=== PATIENT | female | born 1940 | race Caucasian/White ===

== ENCOUNTER 2024-06-27 20:21 | Inpatient (IN) | payer OTHER, SELFPAY ==
[2024-06-27] VITALS (8 sets, daily range): BP systolic 97–190; BP diastolic 67–103; BMI 29.8; BMI 28.3
--- NOTE | 2024-06-27 15:54 | ED.GENMED ---
History of Present Illness
General
Chief Complaint: Pneumonia Symptoms
Source: patient and family
Exam Limitations: none
Time Seen by Provider: 06/27/24 15:21
Nursing documentation reviewed up to this point in time: agreed with
History of Present Illness
History of Present Illness:
Patient is an 84-year-old female brought to the ER for evaluation by son. Patient reports she has had cough since Labor Day for the past several weeks. 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 Completed Zithromax Flonase Tamiflu
Augmentin and Tessalon. She was told urgent care that she has a left lower lobe pneumonia but still has symptoms of cough. She denies any fever or chills.
She does have a history of A-fib and is on aspirin only she refuses other anticoagulation.
She is a non-smoker.
Past History
Past History
ED Past Medical History: Arrthythmia (afib), Asthma, HTN, Hypercholesterolemia and Other (chronic LE edema, R heel osteomyelitis)
ED Past Surgical History: Orthopedic
Social History
Tobacco: Non-smoker
Alcohol: None
Drug: None
Personal:
Living: with family
Review of Systems
Review of Systems
Allergies reviewed?: Yes
All Other Systems: ROS reviewed and negative except as documented in HPI and ROS
Respiratory: Reports cough and other (sob w/ coughing episodes)
Cardiac: Reports no symptoms
ABD/GI: Reports no symptoms
Skin: Reports no symptoms
Neurological: Reports no symptoms
Psychiatric: Reports no symptoms
Phy Exam
General Physical Exam
General Presentation: no apparent distress
General age: appears stated age
General Skin: warm and dry
General Habitus: elderly
General Mental: alert
General Hydration: appears well hydrated
Cardiovascular Exam
Cardiovascular Exam: irregularly irregular
Pulmonary Exam
Pulmonary Exam: other (slight wheezing rhonchi)
Neurological Exam
Neurological Exam: alert and oriented x3
Musculoskeletal Exam
Musculoskeletal Exam: full ROM
Skin Exam
Skin Exam: normal color and warm/dry
Psychiatric Exam
Psychiatric Exam: normal mood/affect
Course
Orders/Labs/Results
Orders:
Orders
06/27/24 Breakfast
Cholesterol Lowering
Cholesterol Lowering: Sodium, 2 Gram
06/27/24 14:25
Electrocardiogram (*1) Urgent
Reason for Study: Shortness of Breath
EKG- Treatment ONCE
06/27/24 Dinner
Cholesterol Lowering
At Your Request: Full Participation
Cholesterol Lowering: Sodium, 2 Gram
06/27/24 16:01
Cardiac Monitoring- Treatment ONCE
CR Chest - 2 Views Urgent
Comment:
Reason For Exam: cough
06/27/24 16:02
IV Insert/Care/Rem.- Treatment PRN
06/27/24 16:17
CMP [Comprehensive Metabolic Panel] Urgent
COVID-19 Antigen Urgent
Source: Nasal Swab
Complete Blood Count/With Diff Urgent
Influenza A+B Rapid Molecular Urgent
MYA Source: Nasal Swab
Specimen Description:
06/27/24 16:56
CT Chest Pe Study Urgent
Comment:
Reason For Exam: persistent cough sob
06/27/24 17:52
Albuterol Nebs [Ventolin Nebules] 2.5 mg INH R NOW STA
06/27/24 18:49
Azithromycin 500 mg/250 ml [Zithromax Infusion] 500 mg in 250 ml IV NOW
CefTRIAXone [Rocephin] 1,000 mg IV NOW STA
06/27/24 18:56
Sterile Water [Sterile Water For Injection] 20 ml .ROUTE .STK-MED
06/27/24 19:44
Admit/Transfer Patient As Directed
Co-Sign Provider:
Level of Care: Inpatient admission
Assign to:: Telemetry
Physician / Group: [email or web address]
Diagnosis: PNA, suspect acute on chr HFpEF
Reason for Telemetry: Subacute Heart Failure
Date to Stop Telemetry: 06/29/24
Time to Stop Telemetry: 11:00
Reason for Hospitalization: PNA, suspect acute on chr HFpEF
Expected length of stay greater than two midnights?: Yes
ELOS- Estimated Length of Stay in days: 4
I certify the patient meets the requirements for IP care: Yes
06/27/24 19:47
Code Status As Directed
Resuscitation Status: Full Code
06/27/24 20:06
Pro-BNP [NT-proBNP] Routine
06/27/24 21:08
Doxycycline [Vibramycin] 100 mg PO Q12
Furosemide [Lasix] 40 mg IV NOW STA
Heparin 5,000 units SC Q12
06/27/24 21:08
HF DIETARY CONSULT Routine
HF EDUCATOR CONSULT Routine
Comment:
Activity As Directed
Activity Level: With Assistance
Intake/ Output As Directed
Frequency: Per unit guidelines
Patient Education As Directed
Type: CHF folder
Comment: give on admission. Document in Interdisciplinary Education record
Sleep Apnea Assessment by RN As Directed
Comment:
Physician Instructions:
Vital Signs As Directed
Frequency: Other
Additional Instructions:: Q12 or per unit guidelines if more frequent.
Weight As Directed
Frequency: Daily
Type of Scale: Standing Scale
Comment: Daily morning weight. If unable to stand, use balanced bed scale.
Weight As Directed
Frequency: Once
Type of Scale: Standing Scale
Comment: Upon Admission. If unable to stand, use balanced bed scale.
Pulse Ox/cont/shift [RESP] Routine
Quantity: 1
Special Instructions: Daily pulse oximetry at rest. If greater than 92% at rest also obtain pulse oximetry
while ambulating as tolerated.
DX Deep Vein Thrombosis Video Routine
06/27/24 22:00
Pravastatin Sodium [Pravachol] 40 mg PO HS
06/28/24 06:00
Echo 2D MMode Color/Doppler IN AM
Reason for Study: heart failure
06/28/24 06:45
Basic Metabolic Panel IN AM
Complete Blood Count/No Diff IN AM
Procalcitonin IN AM
PCT Algorithmm Indication: Respiratory
06/28/24 08:00
Aspirin Low Dose EC [Aspir Low (Enteric Coated)] 81 mg PO DAILY
Furosemide [Lasix] 40 mg IV DAILY
Losartan [Cozaar] 50 mg PO DAILY
Metoprolol Xl [Toprol Xl] 25 mg PO DAILY
Metoprolol Xl [Toprol Xl] 50 mg PO DAILY
06/28/24 20:00
CefTRIAXone [Rocephin] 1,000 mg IV Q24H
06/29/24 06:00
Basic Metabolic Panel IN AM
06/29/24 11:00
DC Protocol for Telemetry ONCE
06/30/24 06:00
Basic Metabolic Panel IN AM
Abnormal Lab Results
06/27/24
16:17
RBC 3.83 L 10^6/uL
(4.20-5.40)
Hgb 11.5 L g/dL
(12.0-16.0)
Hct 34.8 L %
(37.0-47.0)
MPV 11.0 H fL
(7.4-10.4)
Absolute Lymphs (auto) 0.9 L 10^3/uL
(1.2-3.4)
Absolute Monos (auto) 0.7 H 10^3/uL
(0.1-0.6)
Neutrophils % 75.3 H %
(42.2-75.2)
Lymphocytes % 11.4 L %
(20.5-51.1)
BUN 27 H mg/dl
(7-17)
Creatinine 1.1 H mg/dL
(0.6-1.0)
06/27/24 16:17
06/27/24 16:17
Vital Signs
Initial and Last Documented VS:
Initial Vital Signs
Temp Pulse Resp BP Pulse Ox
98.4 F 122 18 190/103 96
06/27/24 14:20 06/27/24 14:20 06/27/24 14:20 06/27/24 14:20 06/27/24 14:20
Last Documented Vital Signs
Temp Pulse Resp BP Pulse Ox
98.3 F 90 20 140/60 95
06/28/24 03:55 06/28/24 08:08 06/28/24 03:55 06/28/24 08:08 06/28/24 03:55
MDM/Problems Addressed
Differential Diagnosis Includes:
not limited to :pneumonia covid, influenza
MDM/Problems Addressed:
Patient is an 84-year-old female who presents to the ER with continued cough. Patient was treated for left lower lobe pneumonia by urgent care/PCP completed Zithromax and completed Augmentin still with cough. Patient denies any fevers short of
breath with cough only she presents awake alert no acute distress she does have a history of A-fib and is not anticoagulated because she does not believe that medication. She is on aspirin. She initially arrived tachycardic at 120 in triage
however here in the treatment area has been 80s to 90s.. Patient does have wheezing on exam/bilateral rhonchi however she is in no acute distress nontachypneic and nonhypoxic.. white count is normal. COVID and flu are negative. Chest x-ray done
shows moderate size airspace consolidation in the basilar left lower lobe possible recurrent left lower lobe pneumonia chronic left lower lobe scarring. With continued symptoms and abnormal chest x-ray will check CT to further evaluate findings.
Pt is well appearing if pneumonia stable for d/c home with a new /different antibx. d/ c with DR Patterson ct pending.
*Radiology
Radiology exam reviewed: radiology read reviewed
*Pulse Oximetry
Patient hypoxic: no
*EKG
Interpreted by ED Provider?: Yes
Heart Rate: 95
Rate: normal
Rhythm: a-fib
Ischemia: no ischemia
*Critical Care Note
Total Time (30-74mins, 75-104mins- exclusive of procedures): Not Applicable
ED Attending Note
-
Portions of this chart may have been created with voice recognition software.� Occasional wrong word or��sound alike� substitutions may have occurred due to the inherent limitations of voice recognition software.
Discharge Plan
Departure
Patient Disposition: Admit
Date of Disposition: 06/27/24
Time of Disposition: 18:50
Admit to: Med/Surg
Admit to doctor: hospitalist
Presentation/result/management discussed w/ accepting MD/DO: Hospitalist
Patient with high blood pressure during this ER visit?: Yes
Condition: Fair
Covid-19: Not Applicable
Discharge Problem:
Failure of outpatient treatment, Pneumonia
Interventions
Interventions:
*Risk Screen - Suicide Last Done: 06/27/24 22:57
*General Assessment Last Done: 06/27/24 14:20
*Neglect/Abuse Screening Last Done: 06/27/24 14:20
*ED COVID-19 Vaccine History Last Done: 06/27/24 23:04
*Nursing Disposition Last Done: 06/27/24 20:40
ED- Cardiac Assessment Last Done: 06/27/24 16:30
ED- Pulmonary Assessment Last Done: 06/27/24 16:30
Discharge Date and Time
Discharge Date/Time: 06/27/24 20:41
[2024-06-27 16:32] LABS: % Basophils 0.4 % (0-2); % Eosinophils 3.1 % (0-6); % Immature Granulocytes 0.5 % (0-0.5); % Lymphocytes 11.4 % (20.5-51.1); % Monocytes 9.3 % (1.7-9.3); % Neutrophils 75.3 % (42.2-75.2); Absolute Eosinophils 0.3 10^3/uL (0-0.7); Absolute Lymphocytes 0.9 10^3/uL (1.2-3.4); Absolute Monocytes 0.7 10^3/uL (0.1-0.6); Hematocrit 34.8 % (37.0-47.0); Hemoglobin 11.5 g/dL (12.0-16.0); Mean Corpuscular Volume 90.9 fL (81.0-99.0); Nucleated Red Blood Cells % 0 %; Platelet Count 186 10^3/uL (130-400); Red Blood Cell Count 3.83 10^6/uL (4.20-5.40); Red Cell Dist. Width 13.6 % (11.5-14.5)
[2024-06-27 16:50] LABS: ALT (SGPT) 13 U/L (0-35); AST (SGOT) 31 U/L (14-36); Albumin 3.8 g/dl (3.5-5.0); Alkaline Phosphatase 83 U/L (38-126); Blood Urea Nitrogen 27 mg/dl (7-17); Calcium 9.6 mg/dl (8.4-10.2); Carbon Dioxide 27 mmol/L (22-30); Chloride 106 mmol/L (98-107); Glucose 99 mg/dl (70-99); Potassium 4.2 mmol/L (3.5-5.1); Sodium 144 mmol/L (135-145); Total Bilirubin 0.5 mg/dl (0.2-1.3); Total Protein 6.8 g/dl (6.3-8.2); eGFR 48.94
[2024-06-27 16:56] LABS: COVID-19 Antigen Negative (Negative)
[2024-06-27] MEDS: VENTOLIN NEBULES 2.5 MG INH (18:18)
[2024-06-27] MEDS: ROCEPHIN 1000 MG IV (19:09)
[2024-06-27] MEDS: ZITHROMAX INFUSION 250 IV (19:10)
--- NOTE | 2024-06-27 19:29 | HPS.HSE ---
Addendum entered and electronically signed by Luis Dia MD 06/27/24 22:46:
Pul consult placed
Original Note:
Family Physician
-
Family Physician: Tavon Velazquez
Chief Complaint
-
Bothersome cough despite ABx
History of Present Illness
84F HX chr HFpEF, Prx AF on ASA, HX refuseal to AC, Chronic lower extremity edema, CKD3 seen at ER for evalaution of bothersome cough since . Evaulaurted at [facility] , completed Zithromax , Augmentin, Tamiflu and Tessalon.
- OP CXR at [facility] suggest left lower lobe pneumonia but still has symptoms of cough.
- denies any fever or chills.
Medical History
Past Medical History
Past Medical History: Reports Other
Additional Past Medical History:
Past medical history and archive reviewed:
A. fib but not anticoagulated because she chose not not to take anticoagulation
Osteoarthritis
Chronic lower extremity edema
Asthma
Hypertension
Dyslipidemia
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
Family history: Positive for hypertension coronary artery disease
Past Surgical History: Reports Other
Social History
Unable to obtain full social history at this time due to: Other
Family History
Family History: Other
Allergies / Home Medications
Allergies reflects when Allergies were last updated in [facility].
Home Medications with original date entered in [facility] [employer]
Allergy/Medication List:
Allergies
Allergy/AdvReac Type Severity Reaction Status Date / Time
No Known Allergies Allergy Verified 09/06/22 12:50
Home Medications
acetaminophen 500 mg tablet (Tylenol Extra Strength) 500 mg PO BID 03/31/21
aspirin 81 mg tablet,delayed release 81 mg PO DAILY Blood clot prevention/tx 03/31/21
atenolol 100 mg tablet (Tenormin) 100 mg PO DAILY Heart disease/condition 03/31/21
chlorthalidone 25 mg tablet 25 mg PO DAILY Fluid retention/Swelling 03/31/21
losartan 100 mg tablet 100 mg PO DAILY Heart disease/condition 03/31/21
pravastatin 40 mg tablet 40 mg PO HS High cholesterol 03/31/21
doxycycline hyclate 100 mg capsule 100 mg PO BID #20 caps 09/06/22
furosemide 20 mg tablet 20 mg PO MOWEFR 09/06/22
Review of Systems
-
Constitutional: Reports No Symptoms
EENT: Reports No Symptoms
Cardiac: Reports No Symptoms
Abdomen/GI: Reports No Symptoms
: Reports No Symptoms
Musculoskeletal: Reports No Symptoms
Skin: Reports No Symptoms
Neurological: Reports No Symptoms
Endocrine: Reports No Symptoms
Hematologic/Lymphatic: Reports No Symptoms
Psych: Reports No Symptoms
Physical Exam
Vital Signs
Vital Signs
Temp Pulse Resp BP Pulse Ox
98.4 F 91 16 163/67 94
06/27/24 14:20 06/27/24 19:07 06/27/24 19:07 06/27/24 19:07 06/27/24 19:07
Physical Exam
General: No Apparent Distress, Comfortable, Conversant and Other
HEENT: NormoCephalic, Moist mucous membranes and No Ptosis
Respiratory: Rhonchi (both lungs ); No Wheezes
Cardiac: Irregular Rhythm; No Murmur
Breast: Deferred by me
GI: Soft, Non Tender and Non Distended
Genito-urinary: Deferred by me
Musculoskeletal: Edema, Left Lower Extremity (chronic ) and Edema, Right Lower Extremity (chronic )
Psych: Calm and Intact Judgment/Insight
Laboratory Results
-
06/27/24 16:17
06/27/24 16:17
Laboratory Results
Total Bilirubin 0.5 mg/dl (0.2-1.3) 06/27/24 16:17
AST 31 U/L (14-36) 06/27/24 16:17
ALT 13 U/L (0-35) 06/27/24 16:17
Alkaline Phosphatase 83 U/L (38-126) 06/27/24 16:17
Data Reviewed
-
Diagnostic Radiology: Report Reviewed by me
CT Scan: Report Reviewed by me
Lab Data: Labs Reviewed by me
Old Records: Reviewed
Impression/Plan
-
Vital Signs
Temp Pulse Resp BP Pulse Ox
98.4 F 91 16 163/67 94
06/27/24 14:20 06/27/24 19:07 06/27/24 19:07 06/27/24 19:07 06/27/24 19:07
Laboratory Tests
10/10/23 06/27/24
15:29 16:17
Creatinine 1.3 H 1.1 H
eGFR 40.30 48.94
SARS-CoV-2 Antigen Negative
CXR
1. Moderate-sized airspace consolidation in the basilar left lower lobe. Diagnostic possibilities are (1) RECURRENT LEFT LOWER LOBE PNEUMONIA or (2) chronic left lower lobe scarring and subsegmental atelectasis.
2. Mild cardiomegaly with suggestion of elevated pulmonary venous pressures.
3. 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
CTC PE protocol
1. Moderate peribronchial and subpleural airspace consolidation in the basilar segments of the left lower lobe.
Moderate cylindrical bronchiectasis in the left lower lobe suggesting chronic infection. Diagnostic possibilities are (1) acute recurrent left lower lobe pneumonia or (2) chronic scarring and atelectasis.
2. Moderate diffuse bronchitis.
3. MILD ACUTE INTERSTITIAL and ALVEOLAR CARDIOGENIC PULMONARY EDEMA.
4. Moderate to severe cardiomegaly with severe biatrial enlargement.
5. Severely exaggerated cervical thoracic kyphosis.
6. Severe left renal atrophy.
EKG
ATRIAL FIBRILLATION
SEPTAL INFARCT (CITED ON OR BEFORE 16-SEP-2022)
ABNORMAL ECG
WHEN COMPARED WITH ECG OF 10-OCT-2023 15:18,
ST NO LONGER DEPRESSED IN INFERIOR LEADS
Confirmed by MD ALAN, KATHIA Perez ([id number]) on 06/27/2024 3:02:08 PM
Last hospitalist admission:
DATE OF ADMISSION: 09/16/2022 - DATE OF DISCHARGE: 09/21/2022
DISCHARGE DIAGNOSES:
1. Influenza A infection.
2. Acute on chronic CHF
3. Chronic lower extremity edema.
4. Atrial fibrillation.
5. Hypertension.
6. Hyperlipidemia.
7. CKD3.
8. Ambulatory dysfunction.
ASSESSMENT & PLAN
LLL basilar PNA
LLL moderate cylindrical bronchiectasis suggesting chronic infection.
- cont. IV CFTX and PO doxycycline in place of Zmax
- To consider Pul consult in AM
HX Chr HFpEF : No prior ECHO
CTC suggest MILD ACUTE INTERSTITIAL and ALVEOLAR CARDIOGENIC PULMONARY EDEMA. ? acute HF
- check proBNP
- ECHO
- IV Lasix 40 daily
- CBC Card consult
HX CKD 3
- f/u daily BMP daily
Chronic lower extremity edema
HX Chronic AF
-cont. Metoprolol
- not on anticoagulation because patient chose not to take it.
Essential Hypertension
- cont Losartan
Hyperlipidemia
-Statin
Chr Ambulatory dysfunction-uses a Walker at home
Osteoarthritis
DVT Px: SQH
Code: Full code
IP TLM
[2024-06-27 20:35] LABS: NT-proBNP 2180 pg/ml
[2024-06-27] MEDS: PRAVACHOL 40 MG PO (22:12)
[2024-06-27] MEDS: HEPARIN 5000 UNITS SC (22:12)
[2024-06-27] MEDS: LASIX 40 MG IV (22:12)
[2024-06-27] MEDS: VIBRAMYCIN 100 MG PO (22:12)
[2024-06-28] VITALS (8 sets, daily range): BP systolic 140–183; BP diastolic 60–91; BMI 27.9
[2024-06-28 07:20] LABS: Hemoglobin 10.5 g/dL (12.0-16.0); Mean Corp Hgb Conc. 32.8 g/dL (33.0-37.0); Mean Corpuscular Hgb 29.1 pg (27.0-31.0); Mean Corpuscular Volume 88.6 fL (81.0-99.0); Mean Platelet Volume 11.1 fL (7.4-10.4); Platelet Count 179 10^3/uL (130-400); Red Blood Cell Count 3.61 10^6/uL (4.20-5.40); Red Cell Dist. Width 13.8 % (11.5-14.5); White Blood Cell Count 7.3 10^3/uL (4.8-10.8)
[2024-06-28 07:40] LABS: Blood Urea Nitrogen 22 mg/dl (7-17); Calcium 9.5 mg/dl (8.4-10.2); Carbon Dioxide 30 mmol/L (22-30); Chloride 104 mmol/L (98-107); Estimated Creatinine Clearance 35 ml/min; Glucose 97 mg/dl (70-99); Potassium 3.8 mmol/L (3.5-5.1); Sodium 146 mmol/L (135-145); eGFR 40.05
[2024-06-28] MEDS: VIBRAMYCIN 100 MG PO ×2 (08:05→20:22)
[2024-06-28] MEDS: COZAAR 50 MG PO (08:05)
[2024-06-28] MEDS: ASPIR LOW (ENTERIC COATED) 81 MG PO (08:05)
[2024-06-28] MEDS: HEPARIN 5000 UNITS SC ×2 (08:07→20:22)
[2024-06-28] MEDS: TOPROL XL 25 MG PO (08:07)
[2024-06-28] MEDS: TOPROL XL 50 MG PO (08:07)
[2024-06-28] MEDS: LASIX 40 MG IV ×2 (08:08→15:50)
[2024-06-28 08:14] LABS: Procalcitonin < 0.05 ng/ml (0.0-0.25)
--- NOTE | 2024-06-28 09:29 | CON.CAR ---
Addendum entered and electronically signed by Essie Hammond MD 06/28/24 16:46:
I saw and examined the patient.
The MOLDER MEAT's note was reviewed and I agree with the note.
Comment: 84 y/o female (patient of Dr. Juarez) who has a history of permanent AFIB (not on OAC as she has declined), hypertension, dyslipidemia, mild to moderate MR, HFpEF, chronic LE edema, hx pneumonitis, uterine carcinoma, bronchiectasis who has
been struggling with pulm infections, now with PNA and acute on chronic hfpEF. She is admittedly noncompliant with diet at home. On exam she is alert and oriented x 3. Respiratory effort is normal but there are inspiratory squeaks, expiratory
crackles and wheezing. These are diffuse but worse in the lower lobes bilaterally. Irregularly irregular rate and rhythm. CTA b/l no w/r/r. ECG with afib and septal infarct patter acute CHF, preserved ejection fraction, agree with IV twice daily
Lasix with intensive monitoring of electrolytes. Continue GDMT. Treatment of pneumonia as per medicine. Her A-fib is rate controlled and she is not on anticoagulation as she declines it. Will follow.
Original Note:
Consultation
Consultation Request
Date/Time Consultation Requested: 06/27/243
Date/Time Consultation Performed: 06/28/24 0930
Requesting Provider: Dr. Dia
Performing Provider: Anamaria MAYORGA for Dr. Hammond
Reason for Consultation: pulmonary edema
Medical History
-
Chief Complaint: MARSHALL, cough, feeling unwell
History of Present Illness:
84 y/o female (patient of Dr. Juarez) who has a history of permanent AFIB (not on OAC as she has declined), hypertension, dyslipidemia, mild to moderate MR, HFpEF, chronic LE edema, hx pneumonitis, uterine carcinoma, bronchiectasis who is here for
evaluation after in mid may she developed cough and chills and was placed on ABX. Later, she went to urgent care and was told she had PNA and put on different ABX. However, she continued to feel poorly overall with productive cough, MARSHALL, fatigue.
She came to the hospital and is being treated for PNA and [id number] HFpEF. She is in no distress at the time of my assessment and is feeling a bit better.
Past Medical History
Past Medical History: Arrhythmias, Cancer, CHF, HTN, Hypercholesterolemia and Valvular Disease
Social History
Tobacco: Non-Smoker
Family History
Family History: Reviewed & Not Pertinent
Allergies / Home Medications
Allergy/AdvReac Type Severity Reaction Status Date / Time
No Known Allergies Allergy Verified 10/10/23 15:18
�Medication �Instructions �Recorded �Confirmed �Type
aspirin 81 mg tablet,delayed 81 mg PO DAILY Blood clot 03/31/21 06/27/24 History
release prevention/tx
pravastatin 40 mg tablet 40 mg PO HS High cholesterol 03/31/21 06/27/24 History
Vitafusion Multivitamin 2 gummy PO DAILY 10/10/23 06/27/24 History
acetaminophen 650 mg 650 mg PO BID 10/10/23 06/27/24 History
tablet,extended release
furosemide 40 mg tablet 40 mg PO DAILY Fluid 10/10/23 06/27/24 History
retention/Swelling
metoprolol succinate 50 mg 50 mg PO DAILY #30 tabs 10/10/23 06/27/24 Rx
tablet,extended release 24 hr
losartan 50 mg tablet 50 mg PO DAILY 06/27/24 06/27/24 History
metoprolol succinate 25 mg 25 mg PO DAILY 06/27/24 06/27/24 History
tablet,extended release 24 hr
Review of Systems
-
History Source: Patient
All other systems: Negative unless noted
Constitutional: Weight Gain, Fatigue and Chills
Respiratory: Cough and Trouble Breathing
Physical Exam
Vital Signs
Temp Pulse Resp BP Pulse Ox
98.3 F 90 20 140/60 95
06/28/24 03:55 06/28/24 08:08 06/28/24 03:55 06/28/24 08:08 06/28/24 03:55
Lab Results
06/28/24 06:45
06/28/24 06:45
Pqv-O-Hkmcikmycii Pept 2180 pg/ml 06/27/24 20:06
Physical Exam
General: Well Developed, Well Nourished and No Apparent Distress
HEENT: Normocephalic and Anicteric
Respiratory: Other (left base coarse lung sounds)
Cardiac: Irregular Rhythm
Musculoskeletal: Edema (mild-moderate bLE edema, chronic)
Skin: Warm and Dry
Neuro: AO x 3
Psych: Calm
Impression / Plan
-
PNA:
-on ABX
Kejld-lq-fzdhodp HFpEF (though no recent echo seen):
-update echo
-weight at Dr. Juarez visit 01/2024 she was 77 kg. She is currently 83.28, which is down with diuresis. She limits fluids, but not sodium and really likes 'junk food'
-agree with IV lasix, which requires intensive monitoring
Permanent AFIB:
-rates currently stable
-continue metoprolol and follow telemetry
-not on OAC as she has declined, which she confirms for me again today
CKD:
-monitor with IV diuresis
HTN:
-continue meds and monitor
Data:
CT: Moderate peribronchial and subpleural airspace consolidation in the basilar segments of the left lower lobe. Moderate cylindrical bronchiectasis in the left lower lobe suggesting chronic infection. Diagnostic possibilities are (1) acute
recurrent left lower lobe pneumonia or (2) chronic scarring and atelectasis. Moderate diffuse bronchitis. MILD ACUTE INTERSTITIAL and ALVEOLAR CARDIOGENIC PULMONARY EDEMA. Moderate to severe cardiomegaly with severe biatrial enlargement. Severely
exaggerated cervical thoracic kyphosis. Severe left renal atrophy.
Data Reviewed
-
EKG: Tracing Personally Visualized and interpreted (AFIB [address]
CT Scan: Report Reviewed by me (Moderate-sized airspace consolidation in the basilar left lower lobe. Diagnostic possibilities are (1) RECURRENT LEFT LOWER LOBE PNEUMONIA or (2) chronic left lower lobe scarring and subsegmental atelectasis. 2.
Mild cardiomegaly with suggestion of elevated pulmonary venous pressures.)
--- NOTE | 2024-06-28 09:40 | CON.PUL ---
Consultation
Consultation Request
Date/Time Consultation Requested: 06/27/20242243
Date/Time Consultation Performed: 06/28/2024 - 899
Requesting Provider: Dr. Dia
Performing Provider: Dr. Slater
Reason for Consultation: PNA
Medical History
-
Chief Complaint: Cough, congestion + shortness of breath
History of Present Illness:
84-year-old female with a past medical history of hypertension, hyperlipidemia and A-fib not on AC who presents with cough, congestion + shortness of breath with activity. She reports she was diagnosed with pneumonia about 1.5 weeks ago and was on
antibiotics however symptoms persisted. She completed course of Zithromax, Augmentin + Tamiflu and also given Tessalon Perles for prn cough. Reportedly there is an outpatient CXR done at an urgent care suggesting left lower lobe pneumonia. The
patient denies any fever or chills. Initial vitals showed she was afebrile to 98.4 �F, BP 190/103, heart rate 122 and saturating 96% on room air. Initial labs showed normal WBC at 8, Hb 11.5, creatinine 1.1, proBNP elevated at 2180, and COVID
antigen, flu A/B are all negative. CXR shows left basilar pneumonia with cardiomegaly. CTA chest confirmed left lower lobe pneumonia with cylindrical bronchiectasis, with moderate diffuse bronchitis and mild acute interstitial/alveolar pulmonary
edema. In the ER she was given nebulized albuterol, ceftriaxone/Zithromax and admitted to the floor for further management. Pulmonary service now consulted for additional recommendations.
When I saw the patient she was resting in bed in no acute distress, on room air breathing comfortably. She is feeling better, with improved cough and shortness of breath. Still short of breath with activity. Denies SOB with laying down both
during his current hospitalization and prior to arrival. She denies BELTRÁN, abdominal pain, nausea, fevers or chills. She did say that she has had a history of pneumonia in the left lung when she was a child. She denies having a history of asthma and
does not take any inhalers at home. 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
PMHx: A-fib not on AC given patient's personal choice, osteoarthritis, chronic lower extremity lymphedema, history of asthma, hypertension, dyslipidemia, mild mitral regurgitation, history of diastolic heart failure, history of uterine carcinoma,
reported history of bronchiectasis, bilateral knee arthritis
PSHx: Total abdominal hysterectomy, knee surgery, right heel surgery
Past Medical History
Past Medical History: Other (Above as per HPI)
Past Surgical History: Other (Above as per HPI)
Social History
Tobacco: Non-smoker
Alcohol: None
Drug: None
Personal:
Living: With Family
Family History
Family History: Cancer (Mother: Brain tumor) and Other (Father: Ruptured AAA due to MVA; Sister: A-fib; another sister: 'Electrical problems related to her heart')
Allergies / Home Medications
Allergies
Allergy/AdvReac Type Severity Reaction Status Date / Time
No Known Allergies Allergy Verified 10/10/23 15:18
Home Medications
�Medication �Instructions �Recorded �Confirmed �Last Taken �Type
aspirin 81 mg tablet,delayed 81 mg PO DAILY Blood clot 03/31/21 06/27/24 10/10/23 History
release prevention/tx
pravastatin 40 mg tablet 40 mg PO HS High cholesterol 03/31/21 06/27/24 10/09/23 History
Vitafusion Multivitamin 2 gummy PO DAILY 10/10/23 06/27/24 10/10/23 History
acetaminophen 650 mg 650 mg PO BID 10/10/23 06/27/24 10/10/23 History
tablet,extended release
furosemide 40 mg tablet 40 mg PO DAILY Fluid 10/10/23 06/27/24 10/09/23 History
retention/Swelling
metoprolol succinate 50 mg 50 mg PO DAILY #30 tabs 10/10/23 06/27/24 Unknown Rx
tablet,extended release 24 hr
losartan 50 mg tablet 50 mg PO DAILY 06/27/24 06/27/24 Unknown History
metoprolol succinate 25 mg 25 mg PO DAILY 06/27/24 06/27/24 Unknown History
tablet,extended release 24 hr
Review of Systems
-
History Source: Patient
All other systems: Negative unless noted
Vitals / Labs / Diagnostic Testing
Vital Signs
Temp Pulse Resp BP Pulse Ox
98.1 F 90 16 140/60 95
06/28/24 07:00 06/28/24 08:08 06/28/24 07:00 06/28/24 08:08 06/28/24 07:00
Lab Data
06/28/24 06:45
06/28/24 06:45
Microbiology
06/27/24 16:17 Nasal Swab Influenza Types A & B (ELIZABETH) - Final
Negative for Influenza A & B, NAAT
Negative results must be combined with clinical observations
and patient history.
Nucleic Acid Amplification test (NAAT)performed on the
[employer] platform.
Diagnostic Testing:
Physical Exam
-
HEENT: Normocephalic and Anicteric
Cardiovascular: Irregular Rhythm (Irregularly irregular) and Peripheral Edema (negative)
Respiratory: Wheeze (negative), Rales (negative), Rhonchi (Left hemithorax) and Non-Labored Respirations
GI: Soft, Non Distended, Non Tender and Normal Bowel Sounds
Neurology: AO x 3 and Tremors (negative)
Skin: Warm and Dry
General: Respiratory Distress (negative), Comfortable, Fever (negative) and Chills (negative)
Assessment
-
Assessment: 84-year-old female with a past medical history of hypertension, hyperlipidemia and A-fib not on AC who presents with cough, congestion + shortness of breath with activity. She reports she was diagnosed with pneumonia about 1.5 weeks
ago and was on antibiotics however symptoms persisted. She completed course of Zithromax, Augmentin + Tamiflu and also given Tessalon Perles for prn cough. Reportedly there is an outpatient CXR done at an urgent care suggesting left lower lobe
pneumonia. The patient denies any fever or chills. Initial vitals showed she was afebrile to 98.4 �F, BP 190/103, heart rate 122 and saturating 96% on room air. Initial labs showed normal WBC at 8, Hb 11.5, creatinine 1.1, proBNP elevated at
2180, and COVID antigen, flu A/B are all negative. CXR shows left basilar pneumonia with cardiomegaly. CTA chest confirmed left lower lobe pneumonia with cylindrical bronchiectasis, with moderate diffuse bronchitis and mild acute
interstitial/alveolar pulmonary edema. In the ER she was given nebulized albuterol, ceftriaxone/Zithromax and admitted to the floor for further management. Pulmonary service now consulted for additional recommendations.
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
uterine carcinoma, reported history of bronchiectasis, bilateral knee arthritis
Impression:
#Left lower lobe pneumonia with mild bilateral hilar lymphadenopathy (likely reactive due to pneumonia)
#Cylindrical bronchiectasis mainly seen in left lower lobe with minor amount and left upper lobe anterior segment
#Intralobular septal thickening concerning for acute pulmonary edema (however it is upper lobe predominant)
#Anemia
#CKD 3
#History of A-fib not on anticoagulation given patient's personal choice
#Reported history of asthma (patient denies this though)
#Esophageal dilation (seen on CT chest from 06/27/2024)
#Severe biatrial enlargement with cardiomegaly and moderate calcific atherosclerotic plaque in the coronary arteries (seen on CT chest 06/27/2024)
#Chronic lower extremity lymphedema
#History of left-sided pneumonia as a child (per patient)
Plan:
- Continue with antibiotics
- Currently on ceftriaxone + doxycycline
- Will treat for total of 7 days assuming she remains afebrile and is clinically continuing to improve for at least 48 hours prior to stopping
- Infectious workup - check urine antigens for Legionella + strep pneumonia as well as sputum culture (if patient can produce a decent sample)
- prn DuoNebs
- She will need outpatient follow-up with repeat CT chest in about 4-6 weeks; I will arrange for outpatient office visit for full PFTs as well.
- Maintain SpO2 >90-94% with supplemental O2 as needed
- Check ambulatory pulse oximetry prior to discharge
- Continue with IV diuresis - currently on lasix 40mg IV BID
- Monitor I/O, UOP and trend sCr
- Start mucolytics with mucinex with acapella; if she develops difficulty expectorating then she would be a candidate for vest therapy/chest PT
- Incentive spirometer encouraged
- Replete electrolytes with K>4, Mg>2
- Maintain euglycemia with goal BG >100 and <180
- prn nebulized bronchodilators
- DVT ppx
Pulmonary service will continue to follow along.
Data:
CXR 06/27/2024:
1. Moderate-sized airspace consolidation in the basilar left lower lobe. Diagnostic possibilities are (1) RECURRENT LEFT LOWER LOBE PNEUMONIA or (2) chronic left lower lobe scarring and subsegmental atelectasis.
2. Mild cardiomegaly with suggestion of elevated pulmonary venous pressures.
3. 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
CTA Chest 06/27/2024:
1. Moderate peribronchial and subpleural airspace consolidation in the basilar segments of the left lower lobe. Moderate cylindrical bronchiectasis in the left lower lobe suggesting chronic infection. Diagnostic possibilities are (1) acute
recurrent left lower lobe pneumonia or (2) chronic scarring and atelectasis.
2. Moderate diffuse bronchitis.
3. MILD ACUTE INTERSTITIAL and ALVEOLAR CARDIOGENIC PULMONARY EDEMA.
4. Moderate to severe cardiomegaly with severe biatrial enlargement.
5. Severely exaggerated cervical thoracic kyphosis.
6. Severe left renal atrophy.
Total time spent today was 55 minutes for this encounter. Time includes reviewing laboratory test/imaging results, reviewing pertinent medical records, obtaining and reviewing medical history, performing an appropriate exam, ordering medications,
tests and procedures. Time also includes documentation of this encounter, coordinating patient care and communicating with other healthcare professionals. Total time does not include separately billed tests performed on this date of service.
--- NOTE | 2024-06-28 12:39 | CM ---
Met with pt at bedside
Pt reports she lives with her son, his fiance and their children in a 2 story town home; 2 steps to enter, 14 steps to 2nd fl
Independent with ADL's, cooks, does some cleaning. Ambulates on own at times and with rolling walker. Uses wheel chair prn
DME - wheel chair, rolling walker x2, wheel chair, raised toilet seat
SNF - past has been at [place]
HH - [facility] in past
Has ride home at discharge
PCP - Dr Tavon Velazquez
Pharm - [facility]
CM will follow for discharge needs
Plan - anticipate home with HH vs SNF based on needs when medically ready
--- NOTE | 2024-06-28 15:22 | W.PN.HOSP.TC ---
Today's Communication/Plan
-
see above
Assessment / Plan
Assessment / Plan
# Dyspnea with cough and feeling unwell-possibly multifactorial. Patient feeling improved. Not hypoxic.
# Possible acute interstitial alveolar cardiogenic pulmonary edema-patient again without hypoxia, hemodynamically stable. Her weight has been increased compared to baseline. Known history of pulm atrial fibrillation but not on anticoagulation.
Noted to have normal EF. Appreciate cardiology input. Continue diuresis and follow weights.
#Possible acute bronchitis-patient known to have history of pneumonitis and bronchiectasis. Chest CT suggests Moderate peribronchial and subpleural airspace consolidation in the basilar segments of the left lower lobe. Moderate cylindrical
bronchiectasis in the left lower lobe suggesting chronic infection.Moderate diffuse bronchitis.. Afebrile. White count is normal. Procalcitonin is negative. Doubt bacterial pneumonic process and more likely bronchitis. Continue antibiotics for
24 hours and if negative will discontinue ceftriaxone continue doxycycline. Add as needed nebulizer.
#Permanent atrial fibrillation-rate controlled. Continue with beta-michael.
#Hypertension-continue the home medication
Full code
Anticipated Discharge: 24 - 48 hours
Subjective/Interval History
-
Date of Service: June 28, 2024
Feeling improved since yesterday.
Breathing improved. Cough which is lately been chronic. Denies seeing a pulmonary on a regular basis. She tells me she was told she has bronchitis and was given nebulizers in the past.
No chest pain or palpitations.
Objective Data
-
Labs:
Laboratory Results
06/28/24
06:45
WBC 7.3
Hgb 10.5 L
Hct 32.0 L
Plt Count 179
Sodium 146 H
Potassium 3.8
Chloride 104
Carbon Dioxide 30
BUN 22 H
Creatinine 1.3 H
Glucose 97
Calcium 9.5
Vital Signs:
Vital Signs
Temp Pulse Resp BP Pulse Ox
98.5 F 88 18 154/77 93
06/28/24 11:00 06/28/24 11:00 06/28/24 11:00 06/28/24 11:00 06/28/24 11:00
I&O
06/27/24 06/28/24 06/29/24
06:59 06:59 06:59
Output Total 1000 / 1000
Balance -1000 / -1000
Review of Systems
-
Constitutional: Denies Fever
EENT: Denies Sore Throat
Abdomen/GI: Denies Abdominal Pain, Nausea or Vomiting
Neuro: Denies Dizzy
Physical Exam
-
HEENT: Moist Mucous Membranes
Respiratory: Rhonchi (Bilaterally), Crackles (Bilateral basilar area) and Non Labored Respirations; Negative Accessory Resp Muscle Use
Cardiac: Regular Rhythm and S1/S2
GI: Soft
Musculoskeletal: No Edema
Neuro: AO x 3
Psych: Calm; Negative Confused
Data Reviewed
-
Labs: Labs Reviewed by me
[2024-06-28] MEDS: ROBITUSSIN DM 5 ML PO (15:49)
[2024-06-28] MEDS: ROCEPHIN 1000 MG IV (20:21)
[2024-06-28] MEDS: STERILE WATER FOR INJECTION 10 ML IV (20:21)
[2024-06-28] MEDS: MUCINEX 1200 MG PO (20:22)
[2024-06-28] MEDS: PRAVACHOL 40 MG PO (22:11)
[2024-06-29] VITALS (8 sets, daily range): BP systolic 138–181; BP diastolic 78–103; BMI 27.3
[2024-06-29 07:40] LABS: % Basophils 0.4 % (0-2); % Eosinophils 4.7 % (0-6); % Immature Granulocytes 0.4 % (0-0.5); % Lymphocytes 19.5 % (20.5-51.1); % Monocytes 13.7 % (1.7-9.3); % Neutrophils 61.3 % (42.2-75.2); Absolute Eosinophils 0.4 10^3/uL (0-0.7); Absolute Lymphocytes 1.5 10^3/uL (1.2-3.4); Absolute Monocytes 1.1 10^3/uL (0.1-0.6); Absolute Neutrophils 4.8 10^3/uL (1.4-6.5); Hematocrit 33.7 % (37.0-47.0); Hemoglobin 11.2 g/dL (12.0-16.0); Mean Corp Hgb Conc. 33.2 g/dL (33.0-37.0); Mean Corpuscular Hgb 29.8 pg (27.0-31.0); Mean Corpuscular Volume 89.6 fL (81.0-99.0); Mean Platelet Volume 11.3 fL (7.4-10.4); Nucleated Red Blood Cells % 0 %; Platelet Count 174 10^3/uL (130-400); Red Blood Cell Count 3.76 10^6/uL (4.20-5.40); Red Cell Dist. Width 13.6 % (11.5-14.5); White Blood Cell Count 7.9 10^3/uL (4.8-10.8)
[2024-06-29] MEDS: LASIX 40 MG IV ×2 (07:48→16:42)
[2024-06-29] MEDS: VIBRAMYCIN 100 MG PO ×2 (07:49→19:58)
[2024-06-29] MEDS: ASPIR LOW (ENTERIC COATED) 81 MG PO (07:49)
[2024-06-29] MEDS: TOPROL XL 25 MG PO (07:49)
[2024-06-29] MEDS: HEPARIN 5000 UNITS SC ×2 (07:50→19:57)
[2024-06-29] MEDS: MUCINEX 1200 MG PO ×2 (07:50→19:57)
[2024-06-29] MEDS: COZAAR 50 MG PO (07:50)
[2024-06-29] MEDS: TOPROL XL 50 MG PO (07:50)
[2024-06-29 07:55] LABS: Blood Urea Nitrogen 24 mg/dl (7-17); Calcium 9.4 mg/dl (8.4-10.2); Carbon Dioxide 30 mmol/L (22-30); Chloride 102 mmol/L (98-107); Estimated Creatinine Clearance 31 ml/min; Glucose 90 mg/dl (70-99); Magnesium 1.7 mg/dl (1.6-2.3); Phosphorus 3.3 mg/dl (2.5-4.5); Potassium 3.5 mmol/L (3.5-5.1); Sodium 142 mmol/L (135-145); eGFR 40.05
--- NOTE | 2024-06-29 09:34 | W.PN.PUL3 ---
Today's Communication / Plan
-
Antibiotics with ceftriaxone + doxycycline
Diuresis with IV lasix 40mg BID
Check echo
If no improvement by tomorrow despite diuresis then would start course of steroids
Up OOB as tolerated
Maintain SpO2 >90-94%
Check ambulatory pulse oximetry prior to discharge
Mucolytics---> if further assistance is needed despite Mucinex + Acapella then would start vest therapy and try to get her vest usage at home given she has bronchiectasis
Outpatient follow-up will be arranged for full PFTs and SOB workup/management
Assessment
-
Assessment: 84-year-old female with a past medical history of hypertension, hyperlipidemia and A-fib not on AC who presents with cough, congestion + shortness of breath with activity. She reports she was diagnosed with pneumonia about 1.5 weeks
ago and was on antibiotics however symptoms persisted. She completed course of Zithromax, Augmentin + Tamiflu and also given Tessalon Perles for prn cough. Reportedly there is an outpatient CXR done at an urgent care suggesting left lower lobe
pneumonia. The patient denies any fever or chills. Initial vitals showed she was afebrile to 98.4 �F, BP 190/103, heart rate 122 and saturating 96% on room air. Initial labs showed normal WBC at 8, Hb 11.5, creatinine 1.1, proBNP elevated at
2180, and COVID antigen, flu A/B are all negative. CXR shows left basilar pneumonia with cardiomegaly. CTA chest confirmed left lower lobe pneumonia with cylindrical bronchiectasis, with moderate diffuse bronchitis and mild acute
interstitial/alveolar pulmonary edema. In the ER she was given nebulized albuterol, ceftriaxone/Zithromax and admitted to the floor for further management. Pulmonary service now consulted for additional recommendations.
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
uterine carcinoma, reported history of bronchiectasis, bilateral knee arthritis
Impression:
#Left lower lobe pneumonia with mild bilateral hilar lymphadenopathy (likely reactive due to pneumonia)
#Cylindrical bronchiectasis mainly seen in left lower lobe with minor amount and left upper lobe anterior segment
#Intralobular septal thickening concerning for acute pulmonary edema (however it is upper lobe predominant)
#Anemia
#CKD 3
#History of A-fib not on anticoagulation given patient's personal choice
#Reported history of asthma (patient denies this though)
#Esophageal dilation (seen on CT chest from 06/27/2024)
#Severe biatrial enlargement with cardiomegaly and moderate calcific atherosclerotic plaque in the coronary arteries (seen on CT chest 06/27/2024)
#Chronic lower extremity lymphedema
#History of left-sided pneumonia as a child (per patient)
Plan:
- Continue with antibiotics
- Currently on ceftriaxone + doxycycline
- Will treat for total of 7 days assuming she remains afebrile and is clinically continuing to improve for at least 48 hours prior to stopping
- Infectious workup - urine antigens for Legionella + strep pneumonia both negative; check sputum culture (if patient can produce a decent sample)
- prn DuoNebs
- She will need outpatient follow-up with repeat CT chest in about 4-6 weeks; I will arrange for outpatient office visit for full PFTs as well.
- Maintain SpO2 >90-94% with supplemental O2 as needed
- Check ambulatory pulse oximetry prior to discharge
- Start nasal ocean mist spray
- Continue with IV diuresis - currently on lasix 40mg IV BID
- Monitor I/O, UOP and trend sCr
- Check echo
- Cardiology consulted - recs appreciated
- If patient does not feel improvement despite diuresis, it would be reasonable at that time to start systemic steroids
- Unknown if patient has COPD or not as no spirometry/PFTs on file; will arrange for outpatient follow-up to obtain full PFTs
- Continue mucolytics with mucinex with acapella; if she develops difficulty expectorating then she would be a candidate for vest therapy/chest PT
- Incentive spirometer encouraged
- Replete electrolytes with K>4, Mg>2
- Maintain euglycemia with goal BG >100 and <180
- prn nebulized bronchodilators
- DVT ppx
Pulmonary service will continue to follow along.
Data:
CXR 06/27/2024:
1. Moderate-sized airspace consolidation in the basilar left lower lobe. Diagnostic possibilities are (1) RECURRENT LEFT LOWER LOBE PNEUMONIA or (2) chronic left lower lobe scarring and subsegmental atelectasis.
2. Mild cardiomegaly with suggestion of elevated pulmonary venous pressures.
3. 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
CTA Chest 06/27/2024:
1. Moderate peribronchial and subpleural airspace consolidation in the basilar segments of the left lower lobe. Moderate cylindrical bronchiectasis in the left lower lobe suggesting chronic infection. Diagnostic possibilities are (1) acute
recurrent left lower lobe pneumonia or (2) chronic scarring and atelectasis.
2. Moderate diffuse bronchitis.
3. MILD ACUTE INTERSTITIAL and ALVEOLAR CARDIOGENIC PULMONARY EDEMA.
4. Moderate to severe cardiomegaly with severe biatrial enlargement.
5. Severely exaggerated cervical thoracic kyphosis.
6. Severe left renal atrophy.
Total time spent today was 35 minutes for this encounter. Time includes reviewing laboratory test/imaging results, reviewing pertinent medical records, obtaining and reviewing medical history, performing an appropriate exam, ordering medications,
tests and procedures. Time also includes documentation of this encounter, coordinating patient care and communicating with other healthcare professionals. Total time does not include separately billed tests performed on this date of service.
Subjective Data
-
Date of Service:
Date of Service: June 29, 2024
Chief Complaint: Pulmonary Follow Up
Subjective:
Patient seen and evaluated today at bedside. Currently on room air, SpO2 95%. Still feeling SOB with activity but overall feels much better since admission. Still coughing but not bringing up phlegm. She is also blowing her nose with clear
secretions coming out. Denies chest pain, BELTRÁN, abdominal pain, fevers or chills. Afebrile overnight.
Review of Systems
General: Other (Negative unless mentioned above)
Objective Data
Data Reviewed
Vital Signs / I&O / Oxygen:
Vital Signs
Temp Pulse Resp BP Pulse Ox
97.9 F 90 16 144/90 94
06/29/24 07:00 06/29/24 07:50 06/29/24 07:30 06/29/24 07:50 06/29/24 07:00
Intake and Output
06/28/24 06/29/24 06/30/24
06:59 06:59 06:59
Intake Total 540 / 540
Output Total 1000 / 1000 2350 / 2350
Balance -1000 / -1000 -1810 / -1810
SaO2 94
Physical Exam
General: Respiratory Distress (negative), Comfortable, Chills (negative) and Sweats (negative)
HEENT: Normocephalic and Anicteric
Cardiovascular: Irregular Rhythm (Irregularly irregular) and Peripheral Edema (Trace lower extremity edema bilaterally)
Respiratory: Wheeze (negative), Crackles (Bibasilar), Rhonchi (negative) and Non-Labored Respirations
GI: Soft, Non Distended, Non Tender and Normal Bowel Sounds
Neurology: AO x 3 and Tremors (negative)
Skin: Warm, Dry and Jaundice (negative)
Labs/Micro/Reports
Lab Data
06/29/24 06:25
06/29/24 06:24
Microbiology
06/28/24 20:19 Urine Legionella Urinary Antigen - Final
Negative for Legionella pneumophila Serogroup 1 antigen.
A negative result does not rule out the possiblity of
Legionella infection due to other serogroups or species of
Legionella. Clinical correlation is recommended.
06/28/24 20:19 Urine Streptococcus pneumoniae Antigen (M - Final
Negative for Streptococcus pneumoniae antigen.
A negative result does not exclude infection with
Streptococcus pneumoniae. Clinical correlation is
recommended.
06/27/24 16:17 Nasal Swab Influenza Types A & B (ELIZABETH) - Final
Negative for Influenza A & B, NAAT
Negative results must be combined with clinical observations
and patient history.
Nucleic Acid Amplification test (NAAT)performed on the
[employer] platform.
--- NOTE | 2024-06-29 10:45 | W.PN.CD ---
Today's Communication / Plan
-
IV Diuresis bid to continue
cm c/s to shields [id number]
Impression / Plan
-
PNA:
-on ABX
Fowup-[id number] HFpEF (though no recent echo seen):
-update echo
-weight at Dr. Juarez visit 01/2024 she was 77 kg. She is currently 81.28, which is down with diuresis. She limits fluids, but not sodium and really likes 'junk food'
-Continue IV lasix BID, which requires intensive monitoring
-should consider SGLT2i, will shields. She isn't sure she wants to start this without Dr Juarez but will consider.
Permanent AFIB:
-rates currently stable
-continue metoprolol and follow telemetry
-not on OAC as she has declined, which she confirms for me again today
CKD:
-monitor with IV diuresis
HTN:
-continue meds and monitor
Subjective:
-she is feeling better, still congested and coughing
Data:
CT: Moderate peribronchial and subpleural airspace consolidation in the basilar segments of the left lower lobe. Moderate cylindrical bronchiectasis in the left lower lobe suggesting chronic infection. Diagnostic possibilities are (1) acute
recurrent left lower lobe pneumonia or (2) chronic scarring and atelectasis. Moderate diffuse bronchitis. MILD ACUTE INTERSTITIAL and ALVEOLAR CARDIOGENIC PULMONARY EDEMA. Moderate to severe cardiomegaly with severe biatrial enlargement. Severely
exaggerated cervical thoracic kyphosis. Severe left renal atrophy.
Physical Exam
Vital Signs/Labs
Vital Signs
Temp Pulse Resp BP Pulse Ox
97.9 F 90 16 144/90 94
06/29/24 07:00 06/29/24 07:50 06/29/24 07:30 06/29/24 07:50 06/29/24 07:00
06/28/24 06/29/24 06/30/24
06:59 06:59 06:59
Actual Weight 83.28 kg 81.284 kg
06/29/24 06:25
06/29/24 06:24
Magnesium 1.7 mg/dl (1.6-2.3) 06/29/24 06:24
06/27/24
20:06
Ehe-Z-Bhmiwpakavz Pept 2180
Physical Exam
Constitutional: No acute distress
Cardiovascular: Systolic murmur absent, Rhythm/rate is irregular, Pedal edema present (1+b/l), JVD present (13 cm h20) and S1S2 is normal
Respiratory: Respiratory effort normal and Other (inspiratory squeaks and intermittent rhonchi---diffusely b/l)
Neuro/Psych: AO x 3
Data Reviewed
-
Date of Service: June 29, 2024
Medical Decision Making: Review of Case with other Provider (update dr degroto continue iv diuresis)
--- NOTE | 2024-06-29 13:01 | W.PN.HOSP.TC ---
Today's Communication/Plan
-
CW ABX
CW IV diuresis
DC planning
Assessment / Plan
Assessment / Plan
# Dyspnea with cough and feeling unwell-possibly multifactorial. Patient feeling improved. Not hypoxic.
# Possible acute interstitial alveolar cardiogenic pulmonary edema-patient again without hypoxia, hemodynamically stable. Her weight has been increased compared to baseline. Known history of pulm atrial fibrillation but not on anticoagulation.
Noted to have normal EF. Appreciate cardiology input. Improving wt - Continue diuresis and follow weights.
#Possible acute bronchitis-patient known to have history of pneumonitis and bronchiectasis. Chest CT suggests Moderate peribronchial and subpleural airspace consolidation in the basilar segments of the left lower lobe. Moderate cylindrical
bronchiectasis in the left lower lobe suggesting chronic infection.Moderate diffuse bronchitis.. Afebrile. White count is normal. Procalcitonin is negative. Doubt bacterial pneumonic process and more likely bronchitis. Continue antibiotics for
7 d per pulm. Add as needed nebulizer. Will need repeat chest CT imaging per pulm.cw mucolytics and antitussives.
#Permanent atrial fibrillation-rate controlled. Continue with beta-michael.
#Hypertension-continue the home medication
# CKD stage 3 Cr better than her baseline
Full code
Anticipated Discharge: 24 - 48 hours
Subjective/Interval History
-
Date of Service: June 29, 2024
Breathing is fine at rest. Hasnt much moved to know about exertional SOB.
Cough with mucoid phlegm.
Denies N/V.
No fevers.
Objective Data
-
Labs:
Laboratory Results
06/29/24 06/29/24
06:24 06:25
WBC 7.9
Hgb 11.2 L
Hct 33.7 L
Plt Count 174
Sodium 142
Potassium 3.5
Chloride 102
Carbon Dioxide 30
BUN 24 H
Creatinine 1.3 H
Glucose 90
Calcium 9.4
Vital Signs:
Vital Signs
Temp Pulse Resp BP Pulse Ox
97.9 F 90 16 144/90 94
06/29/24 07:00 06/29/24 07:50 06/29/24 07:30 06/29/24 07:50 06/29/24 07:00
I&O
06/28/24 06/29/24 06/30/24
06:59 06:59 06:59
Intake Total 540 / 540
Output Total 1000 / 1000 2350 / 2350
Balance -1000 / -1000 -1810 / -1810
Review of Systems
-
Cardiac: Denies Chest Pain
Abdomen/GI: Denies Abdominal Pain, Nausea or Vomiting
Neuro: Denies Dizzy
Physical Exam
-
General: No Apparent Distress
HEENT: Moist Mucous Membranes
Respiratory: Rhonchi (BL with inspiratory squeaks)
Cardiac: Regular Rhythm and S1/S2
Neuro: AO x 3
Data Reviewed
-
Labs: Labs Reviewed by me
--- NOTE | 2024-06-29 14:19 | CM ---
CM consult for med pricing
Called pts Rx plan thru [employer]. [facility] -
Per order entry representative - cost of medications - Farxiga 10mg QD and Jardiance 10mg QD - covered
Co-pay for 30 day supply $0 co-pay; 90 day supply $0 co-pay
Dr Hammond made aware
Pt aware
[2024-06-29] MEDS: OCEAN, SALINE MIST 2 SPRAYS NASAL ×2 (14:24→17:54)
[2024-06-29] MEDS: ROCEPHIN 1000 MG IV (19:57)
[2024-06-29] MEDS: STERILE WATER FOR INJECTION 10 ML IV (19:58)
[2024-06-29] MEDS: PRAVACHOL 40 MG PO (22:45)
[2024-06-29] MEDS: OCEAN, SALINE MIST 50 SPRAYS NASAL (22:45)
[2024-06-30] VITALS (7 sets, daily range): BP systolic 107–151; BP diastolic 64–88; PULSE 85; O2SAT 93; BMI 26.8
[2024-06-30 07:29] LABS: Blood Urea Nitrogen 29 mg/dl (7-17); Calcium 9.2 mg/dl (8.4-10.2); Carbon Dioxide 30 mmol/L (22-30); Chloride 100 mmol/L (98-107); Estimated Creatinine Clearance 29 ml/min; Glucose 90 mg/dl (70-99); Potassium 3.3 mmol/L (3.5-5.1); Sodium 144 mmol/L (135-145); eGFR 36.64
[2024-06-30] MEDS: LASIX 40 MG IV (08:03)
[2024-06-30] MEDS: TOPROL XL 25 MG PO (08:03)
[2024-06-30] MEDS: ASPIR LOW (ENTERIC COATED) 81 MG PO (08:03)
[2024-06-30] MEDS: HEPARIN 5000 UNITS SC ×2 (08:03→20:01)
[2024-06-30] MEDS: TOPROL XL 50 MG PO (08:04)
[2024-06-30] MEDS: COZAAR 50 MG PO (08:05)
[2024-06-30] MEDS: MUCINEX 1200 MG PO ×2 (08:08→20:00)
[2024-06-30] MEDS: VIBRAMYCIN 100 MG PO ×2 (08:08→20:00)
[2024-06-30] MEDS: OCEAN, SALINE MIST 2 SPRAYS NASAL ×4 (08:08→21:37)
--- NOTE | 2024-06-30 08:46 | W.PN.CD ---
Today's Communication / Plan
-
Echo
Continue diuresis
Correct K+
Defer SGLT2-I initiation to primary feather washer. Prefer that med on board prior to adding MRA, but could reconsider
Education
Impression / Plan
-
Dyspnea
- Mixed etiology: lung disease and heart failure
- Lung dz per hospitalist on ABX
Iaucb-nv-fsyxzsi HFpEF (though no recent echo seen):
-update echo today
-weight at Dr. Juarez visit 01/2024 she was 77 kg. Admit weight 88.8 (ER), 84.55 (on floor). Now 79.97 kg
-Diet/fluid indiscretion at home
-Continue IV lasix BID, which requires intensive monitoring
- SGLT2i, ZERO dollars. She prefers to see Dr Juarez to discuss
- Can consider MRA
Permanent rate controlled AFIB, repeatedly declined anticoagulation despite discussion of risks/benefits
CKD, monitor with IV diuresis
HTN
Subjective:
-she is feeling better, still congested and coughing
Data:
CT Chest 06/27/2024 : Moderate peribronchial and subpleural airspace consolidation in the basilar segments of the left lower lobe. Moderate cylindrical bronchiectasis in the left lower lobe suggesting chronic infection. Diagnostic possibilities are
(1) acute recurrent left lower lobe pneumonia or (2) chronic scarring and atelectasis. Moderate diffuse bronchitis. MILD ACUTE INTERSTITIAL and ALVEOLAR CARDIOGENIC PULMONARY EDEMA. Moderate to severe cardiomegaly with severe biatrial enlargement.
Severely exaggerated cervical thoracic kyphosis. Severe left renal atrophy.
Physical Exam
Vital Signs/Labs
Vital Signs
Temp Pulse Resp BP Pulse Ox
98.0 F 91 16 151/80 93
06/30/24 07:10 06/30/24 08:05 06/30/24 07:10 06/30/24 08:05 06/30/24 07:10
06/29/24 06/30/24 07/01/24
06:59 06:59 06:59
Actual Weight 81.284 kg 79.968 kg
06/29/24 06:25
06/30/24 05:33
Magnesium 1.7 mg/dl (1.6-2.3) 06/29/24 06:24
06/27/24
20:06
Oib-L-Duynjkahxhl Pept 2180
Physical Exam
Constitutional: No acute distress
EENT: Anicteric
Cardiovascular: Pedal edema is absent and Diastolic murmur absent
Respiratory: Respiratory effort normal, Crackles Absent and Rhonchi Present
GI: Soft and Distention absent
Neuro/Psych: Alert
Data Reviewed
-
Date of Service: June 30, 2024
[2024-06-30] MEDS: KCL 40 MEQ PO (09:24)
--- NOTE | 2024-06-30 10:41 | W.PN.PUL3 ---
Today's Communication / Plan
-
Continue current antibiotics, if continues to improve transition to oral antibiotics tomorrow and complete total of 7 days
Nebulizers as needed
Diuresis ongoing
Echocardiogram pending
Hopefully discharge planning soon.
Assessment
-
Assessment: 84-year-old female with a past medical history of hypertension, hyperlipidemia and A-fib not on AC who presents with cough, congestion + shortness of breath with activity. She reports she was diagnosed with pneumonia about 1.5 weeks
ago and was on antibiotics however symptoms persisted. She completed course of Zithromax, Augmentin + Tamiflu and also given Tessalon Perles for prn cough. Reportedly there is an outpatient CXR done at an urgent care suggesting left lower lobe
pneumonia. The patient denies any fever or chills. Initial vitals showed she was afebrile to 98.4 �F, BP 190/103, heart rate 122 and saturating 96% on room air. Initial labs showed normal WBC at 8, Hb 11.5, creatinine 1.1, proBNP elevated at
2180, and COVID antigen, flu A/B are all negative. CXR shows left basilar pneumonia with cardiomegaly. CTA chest confirmed left lower lobe pneumonia with cylindrical bronchiectasis, with moderate diffuse bronchitis and mild acute
interstitial/alveolar pulmonary edema. In the ER she was given nebulized albuterol, ceftriaxone/Zithromax and admitted to the floor for further management. Pulmonary service now consulted for additional recommendations.
Chronic conditions BASIN TENDER: A-fib not on AC given patient's personal choice, osteoarthritis, chronic lower extremity lymphedema, history of asthma, hypertension, dyslipidemia, mild mitral regurgitation, history of diastolic heart failure, history of
uterine carcinoma, reported history of bronchiectasis, bilateral knee arthritis
Impression:
#Left lower lobe pneumonia with mild bilateral hilar lymphadenopathy (likely reactive due to pneumonia)
#Cylindrical bronchiectasis mainly seen in left lower lobe with minor amount and left upper lobe anterior segment
#Intralobular septal thickening concerning for acute pulmonary edema (however it is upper lobe predominant)-acute on chronic heart failure with preserved ejection fraction
#Anemia
#CKD 3
#History of A-fib not on anticoagulation given patient's personal choice
#Reported history of asthma (patient denies this though)
#Esophageal dilation (seen on CT chest from 06/27/2024)
#Severe biatrial enlargement with cardiomegaly and moderate calcific atherosclerotic plaque in the coronary arteries (seen on CT chest 06/27/2024)
#Chronic lower extremity lymphedema
#History of left-sided pneumonia as a child (per patient)
Plan:
Patient states that she feels better. Still breathless when ambulating to the bathroom.
Not requiring supplemental oxygen.
Does not appear toxic.
- Continue with antibiotics
- Currently on ceftriaxone + doxycycline D3, can consider to transition to oral antibiotics tomorrow.
- Will treat for total of 7 days assuming she remains afebrile and is clinically continuing to improve
- Infectious workup - urine antigens for Legionella + strep pneumonia both negative; check sputum culture (if patient can produce a decent sample)-not available
- prn DuoNebs
-Recommend outpatient follow-up with repeat CT chest in about 4-6 weeks; I will arrange for outpatient office visit for full PFTs as well.
- Maintain SpO2 >90-94% with supplemental O2 as needed
Currently on room air. Oxygen has been weaned off.
- Continue with diuresis per cardiology, weight trending lower.
- Check echo-pending
- Cardiology consulted - recs appreciated
- If patient does not feel improvement despite diuresis, it would be reasonable at that time to start systemic steroids
- Unknown if patient has COPD or not as no spirometry/PFTs on file; will arrange for outpatient follow-up to obtain full PFTs
- Continue mucolytics with mucinex with acapella; if she develops difficulty expectorating then she would be a candidate for vest therapy/chest PT
- Incentive spirometer encouraged
- prn nebulized bronchodilators-not bronchospastic on exam
- DVT ppx
Pulmonary service will continue to follow along.

Data:
CXR 06/27/2024:
1. Moderate-sized airspace consolidation in the basilar left lower lobe. Diagnostic possibilities are (1) RECURRENT LEFT LOWER LOBE PNEUMONIA or (2) chronic left lower lobe scarring and subsegmental atelectasis.
2. Mild cardiomegaly with suggestion of elevated pulmonary venous pressures.
3. 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
CTA Chest 06/27/2024:
1. Moderate peribronchial and subpleural airspace consolidation in the basilar segments of the left lower lobe. Moderate cylindrical bronchiectasis in the left lower lobe suggesting chronic infection. Diagnostic possibilities are (1) acute
recurrent left lower lobe pneumonia or (2) chronic scarring and atelectasis.
2. Moderate diffuse bronchitis.
3. MILD ACUTE INTERSTITIAL and ALVEOLAR CARDIOGENIC PULMONARY EDEMA.
4. Moderate to severe cardiomegaly with severe biatrial enlargement.
5. Severely exaggerated cervical thoracic kyphosis.
6. Severe left renal atrophy.
Total time spent today was 35 minutes for this encounter. Time includes reviewing laboratory test/imaging results, reviewing pertinent medical records, obtaining and reviewing medical history, performing an appropriate exam, ordering medications,
tests and procedures. Time also includes documentation of this encounter, coordinating patient care and communicating with other healthcare professionals. Total time does not include separately billed tests performed on this date of service.
Subjective Data
-
Date of Service:
Date of Service: June 30, 2024
Chief Complaint: Pulmonary Follow Up (Pneumonia-left lower lobe)
Subjective:
No acute overnight events
Afebrile
Able to clear secretions
Review of Systems
Cardiopulmonary: Dyspnea (Improving), Cough and Sputum Production
Objective Data
Data Reviewed
Vital Signs / I&O / Oxygen:
Vital Signs
Temp Pulse Resp BP Pulse Ox
98.0 F 91 16 151/80 93
06/30/24 07:10 06/30/24 08:05 06/30/24 07:10 06/30/24 08:05 06/30/24 10:06
Intake and Output
06/29/24 06/30/24 07/01/24
06:59 06:59 06:59
Intake Total 540 / 540 660 / 660
Output Total 2350 / 2350 1450 / 1450
Balance -1810 / -1810 -790 / -790
SaO2 93
Physical Exam
General: Respiratory Distress (negative), Comfortable, Chills (negative) and Sweats (negative)
HEENT: Normocephalic and Anicteric
Cardiovascular: Irregular Rhythm (Irregularly irregular) and Peripheral Edema (Trace lower extremity edema bilaterally)
Respiratory: Wheeze (negative), Crackles (Bibasilar), Rhonchi (negative) and Non-Labored Respirations
GI: Soft, Non Distended, Non Tender and Normal Bowel Sounds
Neurology: AO x 3 and Tremors (negative)
Skin: Warm, Dry and Jaundice (negative)
Labs/Micro/Reports
Lab Data
06/29/24 06:25
06/30/24 05:33
Microbiology
06/28/24 20:19 Urine Legionella Urinary Antigen - Final
Negative for Legionella pneumophila Serogroup 1 antigen.
A negative result does not rule out the possiblity of
Legionella infection due to other serogroups or species of
Legionella. Clinical correlation is recommended.
06/28/24 20:19 Urine Streptococcus pneumoniae Antigen (M - Final
Negative for Streptococcus pneumoniae antigen.
A negative result does not exclude infection with
Streptococcus pneumoniae. Clinical correlation is
recommended.
06/27/24 16:17 Nasal Swab Influenza Types A & B (ELIZABETH) - Final
Negative for Influenza A & B, NAAT
Negative results must be combined with clinical observations
and patient history.
Nucleic Acid Amplification test (NAAT)performed on the
[employer] platform.
[2024-06-30] MEDS: OCEAN, SALINE MIST NASAL (12:48)
--- NOTE | 2024-06-30 14:33 | CM ---
Patient seen at bedside.
Discussed case management role.
PT recommending Home Health.
Discussed options with patient and stated would like [facility]
Referral placed in [facility]. Liaison notified.
PLAN: Discharge when medically stable, home with visiting nurse.
--- NOTE | 2024-06-30 14:35 | W.PN.HOSP.TC ---
Addendum entered and electronically signed by William Lowery MD 06/30/24 15:53:
Resident note addendum
Patient is feeling improved without respiratory symptoms shortness of breath. Remains stable on room air.
Patient still with persistent coarse crackles and rhonchorous breathing especially so in the left lower zone. Patient has left lower lobe atelectasis and consolidation. Concern for acute infectious process/pneumonia along with heart failure with
preserved EF. Improving weight as well noted. Continue with antibiotics and IV diuresis today.
If remains stable and improved likely DC in a.m. Cardiology and pulmonary input noted.
Original Note:
Today's Communication/Plan
-
Follow-up with cardiology
Follow-up with pulmonology
Plan for discharge
Assessment / Plan
Assessment / Plan
Acute cardiogenic pulmonary edema:
Atrial fibrillation- rate controlled:
-Echo was done today�pending
-Oxygen saturation 94% on room air ,does not require supplemental oxygen
-Repleted potassium 40 mg p.o.
-Continue IV Lasix twice daily and monitor weight which is decreasing from baseline
-f/u with pulmonology and cardiology
-Continue current rate control medication with metoprolol
Essential Hypertension:
-Today's blood pressure is 129/85, well-controlled
-Continue losartan
Acute bronchitis:
Recurrent left lower lobe pneumonia:
Cylindrical bronchiectasis:
- Chest x-ray on 06/27- Moderate-sized airspace consolidation in the basilar left lower lobe
- Chest CT on 06/27- Moderate peribronchial and subpleural airspace consolidation in the basilar segments of the left lower lobe. Moderate cylindrical bronchiectasis in the left lower lobe suggesting chronic infection, Moderate diffuse bronchitis,
Moderate to severe cardiomegaly with severe biatrial enlargement
- Legionella antigen negative, strep pneumonia negative
- WBC count is 7.9 (06/30)
- Continue IV ceftriaxone and doxycycline, and then transition to oral antibiotics tomorrow until 07/05/24
- Nebulizer as needed.
- Continue mucolytics
- consider possibility of incentive spirometry
- F/U with pulmonology.
Chronic Kidney disease stage 3:
- creatinine is 1.4, trending down from baseline
Anticipated Discharge: 24 - 48 hours
Subjective/Interval History
-
Date of Service: June 30, 2024
No overnight events. No acute medical complaints.
Objective Data
-
Labs:
Laboratory Results
06/30/24
05:33
Sodium 144
Potassium 3.3 L
Chloride 100
Carbon Dioxide 30
BUN 29 H
Creatinine 1.4 H
Glucose 90
Calcium 9.2
Vital Signs:
Vital Signs
Temp Pulse Resp BP Pulse Ox
98.0 F 100 16 129/85 95
06/30/24 11:45 06/30/24 11:45 06/30/24 11:45 06/30/24 11:45 06/30/24 11:45
I&O
06/29/24 06/30/24 07/01/24
06:59 06:59 06:59
Intake Total 540 / 540 660 / 660
Output Total 2350 / 2350 1450 / 1450
Balance -1810 / -1810 -790 / -790
Review of Systems
-
History Source: Patient
All other systems: Reviewed and negative
Physical Exam
-
General: Well Developed and Well Nourished
HEENT: Normocephalic, Atraumatic and Moist Mucous Membranes
Respiratory: Rhonchi (B/L)
Cardiac: Regular Rhythm and S1/S2
Neuro: Awake, Alert, Oriented and AO x 3
Psych: Calm
Data Reviewed
-
Labs: Labs Reviewed by me and Discussed with Physician
--- NOTE | 2024-06-30 15:32 | VNURNOTE ---
Home Health Liaison met with patient at bedside to discuss [facility] nurse/therapy, visits, schedule and homebound status. Patient is agreeable and understands that visits at home will be 2-3 x per week to assess and teach medical management. She
confirms she has a scale at home. She will need [facility] HF teaching/reinforcement. Noted in referral. [facility] brochure provided with contact information. Patient is aware that [facility] will contact them for start of care in 1-2 days after discharge from .
[facility] referral completed in [facility].
[2024-06-30] MEDS: LASIX IV (16:23)
[2024-06-30] MEDS: ROCEPHIN 1000 MG IV (20:00)
[2024-06-30] MEDS: STERILE WATER FOR INJECTION 10 ML IV (20:01)
[2024-06-30] MEDS: PRAVACHOL 40 MG PO (21:37)
[2024-07-01 03:06] VITALS: BP 138/78
[2024-07-01 06:00] VITALS: BMI 26.8
[2024-07-01 06:52] LABS: Hemoglobin 11.6 g/dL (12.0-16.0); Mean Corp Hgb Conc. 33.1 g/dL (33.0-37.0); Mean Corpuscular Hgb 29.5 pg (27.0-31.0); Mean Corpuscular Volume 89.1 fL (81.0-99.0); Mean Platelet Volume 11.6 fL (7.4-10.4); Platelet Count 192 10^3/uL (130-400); Red Blood Cell Count 3.93 10^6/uL (4.20-5.40); Red Cell Dist. Width 13.6 % (11.5-14.5); White Blood Cell Count 7.6 10^3/uL (4.8-10.8)
[2024-07-01 06:55] LABS: ALT (SGPT) 13 U/L (0-35); AST (SGOT) 24 U/L (14-36); Albumin 3.4 g/dl (3.5-5.0); Alkaline Phosphatase 88 U/L (38-126); Blood Urea Nitrogen 38 mg/dl (7-17); Calcium 9.1 mg/dl (8.4-10.2); Carbon Dioxide 29 mmol/L (22-30); Chloride 102 mmol/L (98-107); Estimated Creatinine Clearance 25 ml/min; Glucose 91 mg/dl (70-99); Potassium 3.8 mmol/L (3.5-5.1); Sodium 142 mmol/L (135-145); Total Bilirubin 0.5 mg/dl (0.2-1.3); Total Protein 6.2 g/dl (6.3-8.2); eGFR 31.21
[2024-07-01 07:10] VITALS: BP 155/79
[2024-07-01] MEDS: LASIX 40 MG IV (08:21)
[2024-07-01] MEDS: MUCINEX 1200 MG PO (08:21)
[2024-07-01] MEDS: HEPARIN 5000 UNITS SC (08:21)
[2024-07-01] MEDS: ASPIR LOW (ENTERIC COATED) 81 MG PO (08:21)
[2024-07-01] MEDS: TOPROL XL 50 MG PO (08:21)
[2024-07-01] MEDS: TOPROL XL 25 MG PO (08:21)
[2024-07-01] MEDS: COZAAR 50 MG PO (08:21)
[2024-07-01] MEDS: VIBRAMYCIN 100 MG PO (08:21)
[2024-07-01] MEDS: OCEAN, SALINE MIST 4 SPRAYS NASAL ×3 (08:22→17:04)
--- NOTE | 2024-07-01 10:54 | PN.CDI ---
CDI
- -
CDI:
Physician Documentation Request
Admit Date: 06/27/24 20:21
Dear Doctor Jolynn,
Patient admitted for cough.
06/30 Cardiology PN: 'Danxi-dq-kbgmrdz HFpEF (though no recent echo seen)...Continue IV lasix BID, which requires intensive monitoring'
06/30 Hospitalist PN: 'Concern for acute infectious process/pneumonia along with heart failure with preserved EF. Improving weight as well noted. Continue with antibiotics and IV diuresis today....Acute cardiogenic pulmonary edema'
Please provide further specificity regarding the most likely acuity of CHF you are evaluating, treating or monitoring.
Acute on chronic
Acute
Chronic
Other
Use of terms such as suspected, likely, concern for, or probable (associated with a specific diagnosis that is being evaluated, monitored, or treated as if it exists) are acceptable and can be coded in the inpatient setting, when documented at the
time of discharge.
Thank you,
Merlyn Hickey RN, BSN
CDI Specialist
Available via [place] text
Please use your independent medical judgment in providing your response.
[2024-07-01 11:05] VITALS: BP 156/95
--- NOTE | 2024-07-01 11:05 | PN.CDI ---
CDI
- -
CDI:
Physician Documentation Request
Admit Date: 06/27/24 20:21
Dear Doctor Jolynn,
Patient admitted for cough.
06/30 Potassium level: 3.3
06/30 Potassium Chloride 40 meq PO administered
Based on the above, could you clarify in the progress notes, the appropriate diagnosis, if significant, that supports the above abnormalities and additional evaluation, monitoring and/or treatment rendered:
Hypokalemia
Abnormal lab value insignificant
Other
Use of terms such as suspected, likely, concern for, or probable (associated with a specific diagnosis that is being evaluated, monitored, or treated as if it exists) are acceptable and can be coded in the inpatient setting, when documented at the
time of discharge.
Thank you,
Merlyn Hickey RN, BSN
CDI Specialist
Available via [place] text
Please use your independent medical judgment in providing your response.
--- NOTE | 2024-07-01 11:24 | W.PN.CD ---
Today's Communication / Plan
-
Move to PO Lasix 40 mg BID, adjust based on weights
Goal weight here seems to be 79.8 kg
BMP in 1 week with he news videotape editor Dr. Jaurez
Defer SGLT2-I initiation to primary news videotape editor. Prefer that med on board prior to adding MRA, but could reconsider
Impression / Plan
-
Dyspnea
- Mixed etiology: lung disease and heart failure
- Lung dz per hospitalist on ABX
Atxsc-ca-udyadef HFpEF (though no recent echo seen):
-Echo 06/30/2024: Nml LVEF, mild-mod MR, AoV sclerosis, severe LAE, RV dilated, PASP est 38 mmHg
-weight at Dr. Juarez visit 01/2024 she was 77 kg. Admit weight 88.8 (ER), 84.55 (on floor). Now 79.8 kg
-Diet/fluid indiscretion at home
-Move to PO lasix BID
- SGLT2i, ZERO dollars. She prefers to see Dr Juarez to discuss
- Can consider MRA
Permanent rate controlled AFIB, repeatedly declined anticoagulation despite discussion of risks/benefits
CKD, monitor with IV diuresis
HTN
Subjective:
-she is feeling better, still congested and coughing
Data:
CT Chest 06/27/2024 : Moderate peribronchial and subpleural airspace consolidation in the basilar segments of the left lower lobe. Moderate cylindrical bronchiectasis in the left lower lobe suggesting chronic infection. Diagnostic possibilities are
(1) acute recurrent left lower lobe pneumonia or (2) chronic scarring and atelectasis. Moderate diffuse bronchitis. MILD ACUTE INTERSTITIAL and ALVEOLAR CARDIOGENIC PULMONARY EDEMA. Moderate to severe cardiomegaly with severe biatrial enlargement.
Severely exaggerated cervical thoracic kyphosis. Severe left renal atrophy.
Physical Exam
Vital Signs/Labs
Vital Signs
Temp Pulse Resp BP Pulse Ox
97.8 F 87 16 155/79 95
07/01/24 07:10 07/01/24 07:10 07/01/24 07:10 07/01/24 07:10 07/01/24 07:10
06/30/24 07/01/24 07/02/24
06:59 06:59 06:59
Actual Weight 79.968 kg 79.787 kg
07/01/24 05:50
07/01/24 05:50
Magnesium 1.7 mg/dl (1.6-2.3) 06/29/24 06:24
06/27/24
20:06
Fru-Y-Piousftpgcn Pept 2180
Physical Exam
Constitutional: No acute distress
EENT: Anicteric
Cardiovascular: Pedal edema is absent and Rhythm/rate is irregular
Respiratory: Respiratory effort normal and Crackles Absent
GI: Soft and Distention absent
Data Reviewed
-
Date of Service: July 01, 2024
--- NOTE | 2024-07-01 13:03 | CM ---
Addendum entered by Destiney Churchill 07/01/24 14:56:
IMM explained & signed by patient. In chart
Original Note:
Patient seen at bedside.
Seen by system auditor today, move to [facility].
Accepted by [facility].
PLAN: Home with [facility]
son to transport.
[2024-07-01] MEDS: LASIX 40 MG PO (15:01)
[2024-07-01 15:05] VITALS: BP 111/67
--- NOTE | 2024-07-01 15:12 | W.PN.PUL3 ---
Today's Communication / Plan
-
Transition to oral antibiotics to complete 7 days
Discussed with the patient secretion clearance: DuMildred/Pulmicort will be added
Incentive spirometry and Acapella advised to continue at home
She will need close follow-up with repeat CT scan in the outpatient setting
Information is left in the chart for follow-up
Hopefully discharge soon
Assessment
-
Assessment: 84-year-old female with a past medical history of hypertension, hyperlipidemia and A-fib not on AC who presents with cough, congestion + shortness of breath with activity. She reports she was diagnosed with pneumonia about 1.5 weeks
ago and was on antibiotics however symptoms persisted. She completed course of Zithromax, Augmentin + Tamiflu and also given Tessalon Perles for prn cough. Reportedly there is an outpatient CXR done at an urgent care suggesting left lower lobe
pneumonia. The patient denies any fever or chills. Initial vitals showed she was afebrile to 98.4 �F, BP 190/103, heart rate 122 and saturating 96% on room air. Initial labs showed normal WBC at 8, Hb 11.5, creatinine 1.1, proBNP elevated at
2180, and COVID antigen, flu A/B are all negative. CXR shows left basilar pneumonia with cardiomegaly. CTA chest confirmed left lower lobe pneumonia with cylindrical bronchiectasis, with moderate diffuse bronchitis and mild acute
interstitial/alveolar pulmonary edema. In the ER she was given nebulized albuterol, ceftriaxone/Zithromax and admitted to the floor for further management. Pulmonary service now consulted for additional recommendations.
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
uterine carcinoma, reported history of bronchiectasis, bilateral knee arthritis
Impression:
#Left lower lobe pneumonia with mild bilateral hilar lymphadenopathy (likely reactive due to pneumonia)
#Cylindrical bronchiectasis mainly seen in left lower lobe with minor amount and left upper lobe anterior segment
#Intralobular septal thickening concerning for acute pulmonary edema (however it is upper lobe predominant)-acute on chronic heart failure with preserved ejection fraction
#Anemia
#CKD 3
#History of A-fib not on anticoagulation given patient's personal choice
#Reported history of asthma (patient denies this though)
#Esophageal dilation (seen on CT chest from 06/27/2024)
#Severe biatrial enlargement with cardiomegaly and moderate calcific atherosclerotic plaque in the coronary arteries (seen on CT chest 06/27/2024)
#Chronic lower extremity lymphedema
#History of left-sided pneumonia as a child (per patient)
Plan:
Patient states that she feels better. Still breathless when ambulating to the bathroom.
Remains on room air.
CT scan noted with cylindrical bronchiectasis of the left lower lobe with infiltrate. May explain abnormal breath sounds. Not bronchospastic on exam 07/01/2024
- Unknown if patient has COPD or not as no spirometry/PFTs on file; will arrange for outpatient follow-up to obtain full PFTs
Afebrile without leukocytosis.
- Continue with antibiotics
- Currently on ceftriaxone + doxycycline D4-from my perspective okay to transition to oral antibiotics to complete total 7 days.
- Infectious workup - urine antigens for Legionella + strep pneumonia both negative; check sputum culture (if patient can produce a decent sample)-not available
-Patient has a nebulizer at home, given ongoing crackles/squeaks-should be discharged on DuoNebs 3 times a day.
-Also will start Pulmicort twice a day until symptoms clear.
-Should continue Acapella device at home
-Should continue with mucolytic's
-Hold on systemic corticosteroids as there is no bronchospasm on exam.
-Will need close outpatient follow-up.
-Recommend outpatient follow-up with repeat CT chest in about 4-6 weeks; I will arrange for outpatient office visit for full PFTs as well.
- Continue with diuresis per cardiology, weight trending lower.
-Echocardiogram 06/30/2024: Reviewed, show mild LVH. Normal LVEF. Enlarged right ventricular size and normal function. Severely dilated left atrium. Moderately dilated right atrium. Mild to moderate MR. Aortic sclerosis without stenosis. No
prior available for review.
- Cardiology consulted - recs appreciated
Incentive spirometry
- DVT ppx
Agree with discharge planning.

Data:
CXR 06/27/2024:
1. Moderate-sized airspace consolidation in the basilar left lower lobe. Diagnostic possibilities are (1) RECURRENT LEFT LOWER LOBE PNEUMONIA or (2) chronic left lower lobe scarring and subsegmental atelectasis.
2. Mild cardiomegaly with suggestion of elevated pulmonary venous pressures.
3. 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
CTA Chest 06/27/2024:
1. Moderate peribronchial and subpleural airspace consolidation in the basilar segments of the left lower lobe. Moderate cylindrical bronchiectasis in the left lower lobe suggesting chronic infection. Diagnostic possibilities are (1) acute
recurrent left lower lobe pneumonia or (2) chronic scarring and atelectasis.
2. Moderate diffuse bronchitis.
3. MILD ACUTE INTERSTITIAL and ALVEOLAR CARDIOGENIC PULMONARY EDEMA.
4. Moderate to severe cardiomegaly with severe biatrial enlargement.
5. Severely exaggerated cervical thoracic kyphosis.
6. Severe left renal atrophy.
Subjective Data
-
Date of Service:
Date of Service: July 01, 2024
Chief Complaint: Pulmonary Follow Up (Pneumonia-left lower lobe)
Subjective:
No new complaints today.
Intermittent cough without phlegm production
Shortness of breath is improved
Review of Systems
General: Fever (n)
Cardiopulmonary: Dyspnea (none at rest)
GI: Abdominal Pain (n) and Nausea (n)
Objective Data
Data Reviewed
Vital Signs / I&O / Oxygen:
Vital Signs
Temp Pulse Resp BP Pulse Ox
98.2 F 103 16 156/95 92
07/01/24 11:05 07/01/24 11:05 07/01/24 11:05 07/01/24 11:05 07/01/24 11:05
Intake and Output
06/30/24 07/01/24 07/02/24
06:59 06:59 06:59
Intake Total 660 / 660 570 / 570
Output Total 1450 / 1450 600 / 600
Balance -790 / -790 -30 / -30
SaO2 92
Physical Exam
General: Respiratory Distress (negative), Comfortable, Chills (negative) and Sweats (negative)
HEENT: Normocephalic and Anicteric
Cardiovascular: Irregular Rhythm (Irregularly irregular) and Peripheral Edema (Trace lower extremity edema bilaterally)
Respiratory: Wheeze (negative), Crackles (Bibasilar), Rhonchi (negative) and Non-Labored Respirations
GI: Soft, Non Distended, Non Tender and Normal Bowel Sounds
Neurology: AO x 3 and Tremors (negative)
Skin: Warm, Dry and Jaundice (negative)
Labs/Micro/Reports
Lab Data
07/01/24 05:50
07/01/24 05:50
Microbiology
06/28/24 20:19 Urine Legionella Urinary Antigen - Final
Negative for Legionella pneumophila Serogroup 1 antigen.
A negative result does not rule out the possiblity of
Legionella infection due to other serogroups or species of
Legionella. Clinical correlation is recommended.
06/28/24 20:19 Urine Streptococcus pneumoniae Antigen (M - Final
Negative for Streptococcus pneumoniae antigen.
A negative result does not exclude infection with
Streptococcus pneumoniae. Clinical correlation is
recommended.
--- NOTE | 2024-07-01 15:26 | W.PN.HOSP.TC ---
Addendum entered and electronically signed by William Lowery MD 07/03/24 08:34:
Hypokalemia
[place] on chronic CHF
Original Note:
Today's Communication/Plan
-
f/u outpatient BMP in a week
Assessment / Plan
Assessment / Plan
Acute cardiogenic pulmonary edema:
Atrial fibrillation- rate controlled:
- Recheck BNP in a week outpatient (07/01)
- Creatinine check in outpatient (07/01)
-Per cardiology- Move to PO Lasix 40 mg BID, adjust based on weights
-Echo (06/30)- severely dilated left atrium, LVEF 55-60%
-Oxygen saturation 94% on room air ,does not require supplemental oxygen
-Continue current rate control medication with metoprolol
Essential Hypertension:
-Today's blood pressure is 129/85, well-controlled
-Continue losartan
Acute bronchitis:
Recurrent left lower lobe pneumonia:
Cylindrical bronchiectasis:
Transition to oral ceftriaxone 500 mg BID x 4 days (07/01)
Transition to Doxycycline 100 mg x 3 days (07/01)
Follow up with pulmonology outpatient
Per pulmonology- discontinue DuoNeb and Pulmicort
- Chest x-ray on 06/27- Moderate-sized airspace consolidation in the basilar left lower lobe
- Chest CT on 06/27- Moderate peribronchial and subpleural airspace consolidation in the basilar segments of the left lower lobe. Moderate cylindrical bronchiectasis in the left lower lobe suggesting chronic infection, Moderate diffuse bronchitis,
Moderate to severe cardiomegaly with severe biatrial enlargement
- Legionella antigen negative, strep pneumonia negative
- WBC count is 7.6 (06/30).
- Continue mucolytics
Chronic Kidney disease stage 3:
- creatinine is 1.6, secondary to overdiuresis not BRYANT
Anticipated Discharge: Today
Subjective/Interval History
-
Date of Service: July 01, 2024
No overnight events. Patient has no acute medical complaints.
Objective Data
-
Labs:
Laboratory Results
07/01/24
05:50
WBC 7.6
Hgb 11.6 L
Hct 35.0 L
Plt Count 192
Sodium 142
Potassium 3.8
Chloride 102
Carbon Dioxide 29
BUN 38 H
Creatinine 1.6 H
Glucose 91
Calcium 9.1
Total Bilirubin 0.5
AST 24
ALT 13
Alkaline Phosphatase 88
Vital Signs:
Vital Signs
Temp Pulse Resp BP Pulse Ox
98.2 F 103 16 156/95 92
07/01/24 11:05 07/01/24 11:05 07/01/24 11:05 07/01/24 11:05 07/01/24 11:05
I&O
06/30/24 07/01/24 07/02/24
06:59 06:59 06:59
Intake Total 660 / 660 570 / 570
Output Total 1450 / 1450 600 / 600
Balance -790 / -790 -30 / -30
Review of Systems
-
History Source: Patient
All other systems: Reviewed and negative
Physical Exam
-
General: Well Developed and Well Nourished
HEENT: Normocephalic and Atraumatic
Respiratory: Rhonchi (b/L)
Cardiac: Regular Rhythm and S1/S2
Neuro: Awake, Alert, Oriented and AO x 3
Psych: Calm
Data Reviewed
-
Labs: Labs Reviewed by me and Discussed with Physician
--- NOTE | 2024-07-01 15:38 | W.PN.UPDATE ---
Update Note
Progress Note Update
seen and examined by me independently in collaboration with the medical record consultant.
Lab data and imaging data reviewed.
Addendum as below :
Patient feeling improved with her breathing but still has this cough without productive phlegm.
On further inquiry she tells me she always had this cough with productive phlegm on and off. She had a significant left lower lobe pneumonia in her younger days and ever since he is not the same. 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
Afebrile. Hemodynamically stable. Not hypoxic on room air.
Chest with the coarse crackles and rhonchi in the left lower zone. No wheezes. No respiratory distress. Heart S1 plus S2 heard regular.
Abdomen benign
Weight improvement noted.
Cardiopulmonary input noted.
[place] stable from cardiopulmonary standpoint for discharge.
Home on Lasix 40 mg twice daily and get a repeat BMP checked next week.
Finish total of 7 days of antibiotics and follow with pulmonary as an outpatient.
--- NOTE | 2024-07-01 16:37 | W.DS.TRANS ---
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
-
Discharge Instructions:
Sleep Apnea Risk Low
Discharge Diagnosis/Procedures Acute on Chronic HFpEF, Acute Bronchitis.
Recurrent left lower lobe pneumonia, Cylindrical
bronchiectasis, Chronic kidney disease stage 3
Diet Low Cholesterol,2 Gram Sodium
Activity As tolerated
Driving Restrictions As prior to admission
Bathing Restrictions None
Blood Work BMP blood work in one week -obtain through your
PCP
Other Services VN,PT,OT
Specialty Instructions Weigh Daily
Instructions: *[facility] Heart Failure Instructions
Stand-Alone Forms:
Changes to Home Medications: Yes
Discharge Medications:
DC Medications w/original date entered in [facility]
Vitafusion Multivitamin 2 gummy PO DAILY Supplement 10/10/23
metoprolol succinate 50 mg tablet,extended release 24 hr 50 mg PO DAILY #30 tabs 10/10/23
losartan 50 mg tablet 50 mg PO DAILY Blood Pressure 06/27/24
metoprolol succinate 25 mg tablet,extended release 24 hr 25 mg PO DAILY Blood Pressure 06/27/24
acetaminophen 650 mg tablet,extended release 650 mg PO BID Pain #30 tabs 07/01/24
aspirin 81 mg tablet,delayed release 81 mg PO DAILY Blood clot prevention/tx #30 tabs 07/01/24
budesonide 0.5 mg/2 mL suspension for nebulization 0.5 mg (2 mL) inhalation R BID #60 mL 07/01/24
cefuroxime axetil 500 mg tablet 500 mg PO BID #8 tabs 07/01/24
doxycycline hyclate 100 mg capsule 100 mg PO Q12 #6 caps 07/01/24
furosemide 40 mg tablet 40 mg PO BID AT 0800,1600 #60 tabs 07/01/24
guaifenesin 600 mg tablet, extended release 12 hr 1,200 mg (2 x 600 mg) PO Q12 #60 tabs 07/01/24
pravastatin 40 mg tablet 40 mg PO DAILY #1 tab 07/01/24
Home Medication Changes
Continue medication-Mucinex, cefuroxime, doxycycline.
Changes to medication-dose of Lasix increased from once a day to twice a day.
Pending Results: No
--- NOTE | 2024-07-01 19:58 | W.DCSUMMARY ---
Discharge Summary
Discharge Data
Date of Admission: 06/27/24
Date of Discharge: 07/01/24
-
Pending Results: No
Hospital Course
Discharging Physician : William Rivers
Disposition : Home health
Primary care physician : Dr. Tavon Velazquez
Principal Discharge diagnosis : Acute on Chronic HFpEF
Chronic Discharge diagnosis : Acute bronchitis, recurrent left lower lobe pneumonia, cylindrical bronchiectasis, chronic kidney disease stage 3
Hospital Course : On 06/27/2024 an 84-year-old female with a past medical history of arrhythmia asthma, hypertension, hypercholesterolemia, chronic left extremity edema, right heel osteomyelitis was brought to the ER because of cough she has had for
several weeks associated with shortness of breath. Cough is intermittent in nature. No fever no chills. Patient is afebrile on presentation. Saturating 96% on room air. WBC count is 8 which is normal. No history of smoking. Chest x-ray showed
consolidation in the basilar left lower lobe. Diagnostic possibilities are recurrent left lower lobe pneumonia or chronic left lower lobe scarring and subsegmental atelectasis. Chest CT with IV showed moderate diffuse bronchitis, cylindrical
bronchiectasis in the left lower lobe, peribronchial and subpleural airspace consolidation in the basilar segments of the left lower lobe. . Currently on IV ceftriaxone plus doxycycline. DuoNebs as needed. Echocardiogram shows severely dilated
left atrium, with a PASP of 38 mmHg. Left ventricular ejection fraction of 55 to 60%. Legionella and strep pneumonia negative. Nebulizer also added in treatment. IV Lasix 40 Mg twice daily ordered and weight is decreasing towards baseline.
Patient reports to be feeling much better after treatment in regards to her cough and shortness of breath. Transition the patient to oral ceftriaxone and doxycycline for 7 days on discharge. Continued patient on oral Lasix 40 Mg twice daily and
adjust based on weight. Advised patient to get outpatient basic metabolic panel/BNP with primary care provider and to see probate lawyer outpatient. She will need a repeat CT scan in outpatient setting.
For elevated blood pressure continue on home dose of losartan.
Patient's creatinine level seems to be increasing from baseline at admission which is likely due to diuresis with Lasix and not an BRYANT.
Important imaging findings :
Chest Xray 2 views: 06/27/2024
IMPRESSION:
1. Moderate-sized airspace consolidation in the basilar left lower lobe. Diagnostic possibilities are (1) RECURRENT LEFT LOWER LOBE PNEUMONIA or (2) chronic left lower lobe scarring and subsegmental atelectasis.
2. Mild cardiomegaly with suggestion of elevated pulmonary venous pressures.
3. 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
Chest CT with IV contrast: 06/27/2024
IMPRESSION:
1. Moderate peribronchial and subpleural airspace consolidation in the basilar segments of the left lower lobe. Moderate cylindrical bronchiectasis in the left lower lobe suggesting chronic infection. Diagnostic possibilities are (1) acute
recurrent left lower lobe pneumonia or (2) chronic scarring and atelectasis.
2. Moderate diffuse bronchitis.
3. MILD ACUTE INTERSTITIAL and ALVEOLAR CARDIOGENIC PULMONARY EDEMA.
4. Moderate to severe cardiomegaly with severe biatrial enlargement.
5. Severely exaggerated cervical thoracic kyphosis.
6. Severe left renal atrophy.
Procedure findings :
Discharge Plan
-
Patient Disposition: Home with Home Care
Discharge Diagnosis/Procedures: Acute on Chronic HFpEF, Acute Bronchitis. Recurrent left lower lobe pneumonia, Cylindrical bronchiectasis, Chronic kidney disease stage 3
Condition: Fair
Diet: Low Cholesterol and 2 Gram Sodium
Activity: As tolerated
Driving Restrictions: As prior to admission
Bathing Restrictions: None
Blood Work: BMP blood work in one week -obtain through your PCP
Other Services: VN, PT and OT
Specialty Instructions: Weigh Daily- Call MD for wt gain/loss 3 lbs overnight/5 lbs in 1 week
Activity Restrictions/Additional Instructions:
check BNP in a week outpatient
Follow up creatinine outpatient
Instructions: *[facility] Heart Failure Instructions
Referrals:
Eitan Slater MD [Active] - in three to four weeks (full PFTs on day of office visit)
Tavon Velazquez MD [Family Provider] - in less than 1 week
Prescriptions:
New
furosemide 40 mg Tablet
40 mg PO BID AT 0800,1600 Qty: 60 0RF
doxycycline hyclate 100 mg Capsule
100 mg PO Q12 Qty: 6 0RF
guaifenesin 600 mg Tablet Extended Release 12hr
1,200 mg PO Q12 Qty: 60 0RF
budesonide 0.5 mg/2 mL Suspension For Nebulization
0.5 mg inhalation R BID Qty: 60 0RF
Rx Instructions:
New medication for lung problems
pravastatin 40 mg tablet
40 mg PO DAILY Qty: 1 0RF
Rx Instructions:
As you were taking before;this is not a new medication
cefuroxime axetil 500 mg tablet
500 mg PO BID Qty: 8 0RF
Continued
Vitafusion Multivitamin
2 gummy PO DAILY
metoprolol succinate 50 mg tablet extended release 24 hr
50 mg PO DAILY Qty: 30 0RF
Rx Instructions:
take with 25mg for total of 75mg
losartan 50 mg Tablet
50 mg PO DAILY
metoprolol succinate 25 mg Tablet Extended Release 24 Hr
25 mg PO DAILY
Rx Instructions:
take with 50mg for total of 75mg
aspirin 81 MG tablet,delayed release (DR/EC)
81 mg PO DAILY Qty: 30 0RF
acetaminophen 650 mg Tablet Extended Release
650 mg PO BID Qty: 30 0RF
Discontinued
pravastatin 40 MG tablet
40 mg PO HS
furosemide 40 mg tablet
40 mg PO DAILY
Discharge Orders:
Discharge Patient (As Directed); Ordered 07/01/24
Ordered By: William Lowery
Discharge Date and Time
Discharge Date/Time: 07/01/24 18:35
Print Language: KOSOVAN
--- NOTE | 2024-07-02 09:01 | W.HF.CON ---
Heart Failure
- LV Function
Left ventricular function study result: LV Ejection fraction >40%
Ejection Fraction Percentage: 55-60
- ARNI
Patient already on ARNI: No
Heart Failure ARNI Not Indicated: LV Ejection Fraction >/= 40%
- ACEI/ARB
Patient already on ACEI/ARB: Yes
- Beta Rena
Patient already on Evidence Based Beta Rena: Yes
- Mineralocorticord Receptor Antagonist
Patient already on MRA: No
Heart Failure MRA Not Indicated: LV Ejection Fraction > 40%
- SGLT-2 Inhibitor
Patient already on SGLT-2 Inhibitor: No
Heart Failure SGLT-2 Inhibitor Not Indicated: LV Ejection Fraction >40%
- NYHA CHF Classification
NYHA CHF Classification Level: Class III - Symptoms w/ min exertion, interferes w/ nml daily activity
- ACC/AHA Stage
ACC/AHA Stage: Stage C: Symptomatic Heart Failure
== END 2024-07-01 18:35 | disposition home health service (06) | DRG 193 ==
LOC: 2 NORTH 20:21
PROVIDERS: Internal Medicine Cardiovascular Disease; Nurse Practitioner; ADMITTING PHYSICIAN Internal Medicine; ATTENDING PHYSICIAN Internal Medicine; CONSULT PHYSICIAN Internal Medicine Cardiovascular Disease; CONSULT PHYSICIAN Internal Medicine Critical Care Medicine; EMERGENCY PHYSICIAN Emergency Medicine; FAMILY PHYSICIAN Family Medicine
DX: J18.9 Pneumonia, unspecified organism (principal); I50.33 Acute on chronic diastolic (congestive) heart failure; I48.21 Permanent atrial fibrillation; I13.0 Hypertensive heart and chronic kidney disease with heart failure and stage 1 through stage 4 chronic kidney disease, or unspecified chronic kidney disease; J47.0 Bronchiectasis with acute lower respiratory infection; J98.11 Atelectasis; J20.9 Acute bronchitis, unspecified; E78.00 Pure hypercholesterolemia, unspecified; I89.0 Lymphedema, not elsewhere classified; I25.10 Atherosclerotic heart disease of native coronary artery without angina pectoris; I34.0 Nonrheumatic mitral (valve) insufficiency; N18.30 Chronic kidney disease, stage 3 unspecified; D63.1 Anemia in chronic kidney disease; E87.6 Hypokalemia; M17.0 Bilateral primary osteoarthritis of knee; Z20.822 Contact with and (suspected) exposure to COVID-19; Z87.01 Personal history of pneumonia (recurrent); Z79.2 Long term (current) use of antibiotics; Z85.42 Personal history of malignant neoplasm of other parts of uterus; Z79.899 Other long term (current) drug therapy; Z79.82 Long term (current) use of aspirin
CPT/HCPCS: 71046; 71275; 80048; 80053; 83735; 83880; 84100; 84145; 85025; 85027; 87449; 87502; 87811; 87899; 93005; 93306; 94640; 96365; 96375; 97162; 97530; 99285; Q9967

== ENCOUNTER 2025-08-26 19:33 | Emergency (ER) | payer OTHER, SELFPAY ==
[2025-08-26 19:40] VITALS: BP 208/138
[2025-08-26 20:26] LABS: Hematocrit 37.5 % (37.0-47.0); Hemoglobin 12.3 g/dL (12.0-16.0); Mean Corp Hgb Conc. 32.8 g/dL (33.0-37.0); Mean Corpuscular Volume 84.5 fL (81.0-99.0); Nucleated Red Blood Cells % 0 %; Platelet Count 242 10^3/uL (130-400); Red Cell Dist. Width 15.1 % (11.5-14.5)
[2025-08-26 20:32] VITALS: BP 144/93
[2025-08-26 20:44] LABS: ALT (SGPT) 13 U/L (0-35); AST (SGOT) 23 U/L (14-36); Albumin 4.3 g/dl (3.5-5.0); Alkaline Phosphatase 99 U/L (38-126); Blood Urea Nitrogen 23 mg/dl (7-17); Calcium 9.6 mg/dl (8.4-10.2); Carbon Dioxide 26 mmol/L (22-30); Chloride 105 mmol/L (98-107); Glucose 117 mg/dl (70-99); Potassium 4.0 mmol/L (3.5-5.1); Sodium 140 mmol/L (135-145); Total Protein 7.7 g/dl (6.3-8.2); eGFR 39.80
--- NOTE | 2025-08-26 20:54 | ED.GENMED ---
History of Present Illness
General
Chief Complaint: Blood Pressure Problem
Source: patient and family
Exam Limitations: none
Time Seen by Provider: 08/26/25 20:34
History of Present Illness
History of Present Illness:
85-year-old female A-fib on Eliquis COPD family member was a smoker, on nebs and inhaled steroids, went to an urgent care for what she thought was bronchitis told she had pneumonia and high blood pressure referred here here she is wheezing she is in
a rate controlled AF, no nausea vomiting no fever no hemoptysis does have high blood pressure as well
Past History
Past History
ED Past Medical History: Arrthythmia (afib), Asthma, COPD, HTN, Hypercholesterolemia and Other (chronic LE edema, R heel osteomyelitis)
ED Past Surgical History: Orthopedic
Social History
Tobacco: 2nd hand smoke exposure
Alcohol: None
Drug: None
Personal:
Living: with family
Employment: Retired
Review of Systems
Review of Systems
All Other Systems: Not applicable
Constitutional: Denies fever or fatigue
EENT: Reports no symptoms
Respiratory: Reports cough and trouble breathing
Cardiac: Reports no symptoms
ABD/GI: Reports no symptoms
: Reports no symptoms
Musculoskeletal: Reports no symptoms
Skin: Reports no symptoms
Neurological: Reports weakness
Endocrine: Reports no symptoms
Phy Exam
Physical Exam
Physical Exam:
Physical Exam
General: no apparent distress, not acutely ill
Neck: No trauma
Heart: Irregular
Lungs: Wheezing
Abdomen: Not tender
Neuro: alert and oriented. no focal neurological deficits
Skin: no rash
Psychiatric: well kept. interactive and cooperative
Extremities: Trace edema
Course
Orders/Labs/Results
Orders:
Orders
08/26/25 19:45
Electrocardiogram (*1) Urgent
Reason for Study: Chest Pain
EKG- Treatment ONCE
08/26/25 20:00
Complete Blood Count/With Diff Urgent
Comprehensive Metabolic Panel Urgent
NT-proBNP Urgent
Comment: ADD ON
Troponin I Urgent
08/26/25 20:19
Add On- LAB Urgent
Tests Added?: pnb
CR Chest - 2 Views Urgent
Comment:
Reason For Exam: sob
08/26/25 20:54
Ipratropium/Albuterol Sulfate [Duoneb] 3 ml INH R NOW STA
08/26/25 22:09
Dexamethasone Sod Phosphate [Decadron] 10 mg IV NOW STA
Furosemide [Lasix] 40 mg IV NOW STA
08/26/25 22:37
Doxycycline [Vibramycin] 100 mg PO NOW STA
Abnormal Lab Results
08/26/25
20:00
MCHC 32.8 L g/dL
(33.0-37.0)
RDW 15.1 H %
(11.5-14.5)
Absolute Neuts (auto) 8.5 H 10^3/uL
(1.4-6.5)
Absolute Lymphs (auto) 1.0 L 10^3/uL
(1.2-3.4)
Absolute Monos (auto) 0.9 H 10^3/uL
(0.1-0.6)
Neutrophils % 80.6 H %
(42.2-75.2)
Lymphocytes % 9.7 L %
(20.5-51.1)
BUN 23 H mg/dl
(7-17)
Creatinine 1.3 H mg/dL
(0.6-1.0)
Glucose 117 H mg/dl
(70-99)
08/26/25 20:00
08/26/25 20:00
Vital Signs
Initial and Last Documented VS:
Initial Vital Signs
Temp Pulse Resp BP Pulse Ox
98.2 F 121 18 208/138 96
08/26/25 19:40 08/26/25 19:40 08/26/25 19:40 08/26/25 19:40 08/26/25 19:40
Last Documented Vital Signs
Temp Pulse Resp BP Pulse Ox
98.2 F 101 18 148/73 95
08/26/25 19:40 08/26/25 22:33 08/26/25 21:00 08/26/25 22:33 08/26/25 21:00
MDM/Problems Addressed
Differential Diagnosis Includes:
Bronchitis pneumonia heart failure hypertension
MDM/Problems Addressed:
Cough wheeze high blood pressure
Chronic conditions affecting care: HTN, Cardiomyopathy, Arrhythmia and COPD
Acute Exacerbation and/or Progression of Chronic Illness: HTN, Cardiomyopathy and Arrhythmia
*Radiology
Radiology exam reviewed: preliminary read by ED provider
*Pulse Oximetry
SaO2: 96
Oxygen Mode of Delivery: Room air
Patient hypoxic: no
*EKG
Interpreted by ED Provider?: Yes
Interpretation: abnormal
Comparison EKG: no comparison EKG present
Heart Rate: 75
Rate: normal
Rhythm: a-fib
Ischemia: non-specific ST changes
*Billboard Installer Interpretation
Rate: normal
Interpretation: normal
Heart Rate: 74
Rhythm: a-fib
*Critical Care Note
Total Time (30-74mins, 75-104mins- exclusive of procedures): Not Applicable
Data Reviewed
Review of Other/Old Records Reveals: Labs
Source: patient
Update Note
Update Note:
10:08 PM update chest x-ray noted prior chest x-ray noted will treat for pneumonia and heart failure proBNP noted
10:30 PM update patient looks well vital signs have normalized
ED Attending Note
-
Portions of this chart may have been created with voice recognition software.� Occasional wrong word or��sound alike� substitutions may have occurred due to the inherent limitations of voice recognition software.
Discharge Plan
Departure
Patient Disposition: Home (Routine Discharge)
Date of Disposition: 08/26/25
Time of Disposition: 22:40
Patient with high blood pressure during this ER visit?: No
Condition: Good
Discharge Problem:
Pneumonia, CHF (congestive heart failure), Cerumen impaction
Instructions: Ear wax impaction, Pneumonia in adults - ED (DC), *[facility] Heart Failure Instructions
Prescriptions:
New
methylprednisolone [Medrol (Jerry)] 4 mg tablets,dose pack
See Rx Instructions .ROUTE .COMPLEX Qty: 21 0RF
Rx Instructions:
for 6 days
doxycycline hyclate 100 mg tablet,delayed release (DR/EC)
100 mg PO BID Qty: 20 0RF
No Action
Vitafusion Multivitamin
2 gummy PO DAILY
metoprolol succinate 50 mg tablet extended release 24 hr
50 mg PO DAILY Qty: 30 0RF
Rx Instructions:
take with 25mg for total of 75mg
losartan 50 mg Tablet
50 mg PO DAILY
metoprolol succinate 25 mg Tablet Extended Release 24 Hr
25 mg PO DAILY
Rx Instructions:
take with 50mg for total of 75mg
furosemide 40 mg Tablet
40 mg PO BID AT 0800,1600 Qty: 60 0RF
doxycycline hyclate 100 mg Capsule
100 mg PO Q12 Qty: 6 0RF
guaifenesin 600 mg Tablet Extended Release 12hr
1,200 mg PO Q12 Qty: 60 0RF
aspirin 81 MG tablet,delayed release (DR/EC)
81 mg PO DAILY Qty: 30 0RF
acetaminophen 650 mg Tablet Extended Release
650 mg PO BID Qty: 30 0RF
budesonide 0.5 mg/2 mL Suspension For Nebulization
0.5 mg inhalation R BID Qty: 60 0RF
Rx Instructions:
New medication for lung problems
pravastatin 40 mg tablet
40 mg PO DAILY Qty: 1 0RF
Rx Instructions:
As you were taking before;this is not a new medication
cefuroxime axetil 500 mg tablet
500 mg PO BID Qty: 8 0RF
Referrals:
Yumiko Campoverde DO [Family Provider] - Next open appointment
Eitan Juarez MD [Active, Cardiology] - Next open appointment
Interventions
Interventions:
*Risk Screen - Suicide Last Done: 08/26/25 19:40
ED- Cardiac Assessment Last Done: 08/26/25 21:15
ED- Neurological Assessment Last Done: 08/26/25 21:15
ED- Pulmonary Assessment Last Done: 08/26/25 21:15
Discharge Date and Time
Print Language: URDU
[2025-08-26 20:55] LABS: Troponin I 0.022 ng/ml
[2025-08-26 21:00] VITALS: BP 155/82
[2025-08-26] MEDS: DUONEB 3 ML INH (21:44)
[2025-08-26 22:00] VITALS: BP 148/73
[2025-08-26] MEDS: DECADRON 10 MG IV (22:33)
[2025-08-26] MEDS: LASIX 40 MG IV (22:33)
[2025-08-26] MEDS: VIBRAMYCIN 100 MG PO (22:43)
== END 2025-08-26 22:54 | disposition home or self-care (01) ==
LOC: EMR 19:33
PROVIDERS: Emergency Medicine; EMERGENCY PHYSICIAN Emergency Medicine; FAMILY PHYSICIAN Family Medicine
DX: J18.9 Pneumonia, unspecified organism (principal); I11.0 Hypertensive heart disease with heart failure; I50.9 Heart failure, unspecified; H61.20 Impacted cerumen, unspecified ear; I42.9 Cardiomyopathy, unspecified; I48.91 Unspecified atrial fibrillation; E78.00 Pure hypercholesterolemia, unspecified; J44.0 Chronic obstructive pulmonary disease with (acute) lower respiratory infection; R60.0 Localized edema; Z79.01 Long term (current) use of anticoagulants; Z77.22 Contact with and (suspected) exposure to environmental tobacco smoke (acute) (chronic)
CPT/HCPCS: 99284; 96374; 96375; 94640; 71046; 80053; 83880; 84484; 85025; 93005